=== PATIENT | female | born 1955 | race Caucasian/White ===

== ENCOUNTER → 2020-05-03 13:27 | Outpatient (CLI) | payer MEDICARE, OTHER, SELFPAY ==
--- NOTE | ~2020-05-03 | MM_ITS ---
EXAMINATION: MM screening alisha BI w sandie HISTORY: Screening mammogram, family history of breast cancer in her sister. TECHNIQUE: Craniocaudal and mediolateral oblique 3-D tomosynthesis images were obtained and synthetic 2-D images were generated. CAD analysis was submitted and interpreted. COMPARISON: 05/01/2019, 04/10/2018, 03/09/2017 BREAST PARENCHYMAL COMPOSITION: The breasts are almost entirely fatty. FINDINGS: There is no evidence of suspicious mass, calcification, or architectural distortion to sugg est malignancy in either breast. There has been no suspicious interval change. IMPRESSION: 1. No mammographic evidence of malignancy. 2. Recommend routine screening mammography in one year. BI-RADS Category 1: Negative Reviewed, dictated and finalized at location A. DENCE MANAGER
--- NOTE | ~2020-05-03 | DEXA_ITS ---
Bone Density Report Name: Bety Vasquez Age: 64 Sex: Female Ethnicity: White Date of : 1955 Indication: osteopenia; hysterectomy; Referring Provider: ERICK ALAN Study: Bone densitometry was performed. Exam Date: May 03, 2020 Accession number: [id number] Bone Density: Region BMD T-score Z-score Classification AP Spine (L1-L4) 0.941 -1.0 0.9 Normal Femoral Neck (Left) 0.825 -0.2 1.4 Normal Total Hip (Left) 0.984 0.3 1.7 Normal Femoral Neck (Right) 0.805 -0.4 1.2 Normal Total Hip (Right) 0.873 -0.6 0.8 Normal Total Hip Mean 0.929 -0.2 1.3 Normal World Health Organization criteria for BMD impression classify patients as: Normal (T-score at or above -1.0), Osteopenia (T-score between -1.0 and -2.5), or Osteoporosis (T-score at or below -2.5). 10-year Fracture Risk: FRAX not reported because: All T-scores for Spine Total, Hip Total, Femoral Neck at or above -1.0 Previous Exams: Region Exam Age BMD T-score BMD Change BMD Change Date g/cm2 vs Baseline vs Previous AP Spine(L1-L4) 05/03/2020 64 0.941 -1.0 -0.045* 0.038* 04/10/2018 62 0.903 -1.3 -0.083* -0.027* 03/04/2016 60 0.930 -1.1 -0.056* -0.037* 12/29/2011 56 0.967 -0.7 -0.019 0.015 11/16/2008 53 0.952 -0.9 -0.034* -0.034* 11/09/2006 51 0.986 -0.6 Total Hip(Left) 05/03/2020 64 0.984 0.3 -0.050* 0.000 04/10/2018 62 0.983 0.3 -0.050* 0.044* 03/04/2016 60 0.939 0.0 -0.095* -0.137* 12/29/2011 56 1.076 1.1 0.042* 0.069* 11/16/2008 53 1.007 0.5 -0.027 -0.027 11/09/2006 51 1.034 0.8 Total Hip(Right) 05/03/2020 64 0.873 -0.6 -0.099* -0.004 04/10/2018 62 0.877 -0.5 -0.095* -0.009 03/04/2016 60 0.887 -0.5 -0.086* -0.095* 12/29/2011 56 0.982 0.3 0.010 0.005 11/16/2008 53 0.977 0.3 0.004 0.004 11/09/2006 51 0.972 0.2 *Denotes significance at 95% confidence level, LSC for AP Spine = 0.022 g/cm2, LSC for Total Hip = 0.027 g/cm2 Clinical Information Provided by Patient: Has used the following medications: Vitamin D, Calcium Has the following medical conditions: Hysterectomy Patient maximum height was 62 Menopause Age: 28 No regular weight bearing exercise Does not regularly consume dairy products
== END ==
PROVIDERS: PCP Physician Assistant; Visit Provider Obstetrics & Gynecology Gynecology
DX: Z13.820 Encounter for screening for osteoporosis (principal); Z12.31 Encounter for screening mammogram for malignant neoplasm of breast; Z78.0 Asymptomatic menopausal state
CPT/HCPCS: 77063; 77067; 77080

== ENCOUNTER → 2020-07-06 11:29 | Outpatient (CLI) | payer MEDICARE, OTHER, SELFPAY ==
--- NOTE | ~2020-07-06 | XR_ITS ---
EXAMINATION: XR shoulder RT min 2V DATE: 07/06/2020 12:09 INDICATION: Right upper arm pain. TECHNIQUE: 4 views of right shoulder were obtained. COMPARISON: None. FINDINGS: Bone alignment is normal. No fracture. Glenohumeral joint is normal. There is moderate acro mioclavicular joint osteoarthritis. There are changes of heart valve replacement. IMPRESSION: 1. Moderate acromioclavicular joint osteoarthritis. Reviewed, dictated and finalized at location B. TOCK SPRAY UNIT ADJUSTER
--- NOTE | ~2020-07-06 | XR_ITS ---
EXAMINATION: XR cervical spine 4-5V EXAM DATE: 07/06/2020 12:09 INDICATION: M54.12 - Radiculopathy, cervical region cervical radiculopathy. 3 months right upper arm pain, tingling in hands. TECHNIQUE: Cervical spine frontal, lateral, lateral swimmers, and open-mouth odontoid projections. There is no prior study for comparison. FINDINGS: There is 2 mm anterolisthesis C4 on C5. The vertebral bodies are otherwise aligned. Modera te to severe disc disease C5-6 and C6-7. Mild to moderate disc disease C3-4 and L4-5. The odontoid pr ocess is intact. The lateral masses of C1 line up with C2. Prevertebral soft tissue and pre-dens spa ce are within normal limits. There is mild cervical thoracic levoscoliosis. Some sternotomy wires. Bu lky mid cervical facet joint arthropathy. Lower cervical predominant uncovertebral joint arthropathy causing some amount of neural foraminal stenosis. IMPRESSION: 1. Moderate to severe cervical spondylosis. Reviewed, dictated and finalized at location A. GER WOUND CARE
== END ==
PROVIDERS: PCP Physician Assistant; Visit Provider Physician Assistant
DX: M47.812 Spondylosis without myelopathy or radiculopathy, cervical region (principal); M19.011 Primary osteoarthritis, right shoulder
CPT/HCPCS: 72050; 73030

== ENCOUNTER → 2020-07-09 10:40 | Outpatient (CLI) | payer MEDICARE, OTHER, SELFPAY ==
--- NOTE | ~2020-07-09 | MR_ITS ---
EXAMINATION: MR cervical spine wo con DATE: 07/09/2020 11:53 INDICATION: Cervical spondylosis without myelopathy or radiculopathy. TECHNIQUE: Magnetic resonance imaging (MRI) of the cervical spine was performed without intravenous c ontrast. Sequences included sagittal T2-weighted FSE, sagittal STIR FSE, sagittal T1-weighted FSE, ax ial MERGE, and axial T2-weighted FSE. COMPARISON: Cervical spine radiographs 07/06/2020 FINDINGS: There is 2 mm anterolisthesis of C4 on C5. There is 16 degrees levoscoliosis of cervicothor acic spine. Vertebral body heights are normal. There is mildly decreased disc height at C3-C4 and C4- C5, moderately decreased disc height at C5-C6, and severely decreased disc height at C6-C7. The spina l cord signal intensity is normal. The following disc levels are specifically discussed: C2-C3: The disc does not extend beyond the endplate margin. There is no uncovertebral joint osteoarth ritis. There is mild right facet joint osteoarthritis. There is ankylosis of left facet joint with mo derate hypertrophy. There is no neural foraminal stenosis. There is no central canal stenosis. C3-C4: The disc does not extend beyond the endplate margin. There is mild left uncovertebral joint hy pertrophy. There is mild right facet joint osteoarthritis. There is ankylosis of left facet joint wit h moderate hypertrophy. There is moderate left neural foraminal stenosis. There is no central canal s tenosis. C4-C5: The disc is bulging. There is mild bilateral uncovertebral joint osteoarthritis. There is luz re bilateral facet joint osteoarthritis. There is mild bilateral neural foraminal stenosis. There is mild central canal stenosis. C5-C6: The disc is bulging. There is moderate right and severe left uncovertebral joint osteoarthriti s. There is no facet joint osteoarthritis. There is mild left neural foraminal stenosis. There is mil d central canal stenosis. C6-C7: The disc is bulging. There is moderate right and severe left uncovertebral joint osteoarthriti s. There is mild bilateral facet joint osteoarthritis. There is mild bilateral neural foraminal steno sis. There is mild central canal stenosis. C7-T1: The disc does not extend beyond the endplate margin. There is no uncovertebral joint osteoarth ritis. There is mild bilateral facet joint osteoarthritis. There is no neural foraminal stenosis. The re is no central canal stenosis. IMPRESSION: 1. Severe cervical spondylosis. 2. Cervicothoracic levoscoliosis. Reviewed, dictated and finalized at location B. WARE TEST TECHNICIAN
[2020-07-09 11:21] LABS: Estimated Glomerular Filt Rate 32
== END ==
PROVIDERS: PCP Physician Assistant; Visit Provider Physician Assistant
DX: M47.812 Spondylosis without myelopathy or radiculopathy, cervical region (principal); M41.83 Other forms of scoliosis, cervicothoracic region
CPT/HCPCS: 72141

== ENCOUNTER 2020-07-23 11:53 | Inpatient (IN) | payer MEDICARE, OTHER, SELFPAY ==
[2020-07-23] VITALS (17 sets, daily range): BP systolic 134–171; BP diastolic 42–97; PULSE 73–86; RESP 10–23; TEMP 36.4–37.1; O2SAT 82–100
--- NOTE | ~2020-07-23 | XR_ITS ---
XR surgery orthopedic 07/24/2020 13:05 Indication: Intraoperative fixation of bimalleolar fracture Procedure: 5 fluoroscopic images of the right ankle. 79 seconds of fluoroscopy. Comparison: 07/23/2020 Findings: Status post internal fixation of bimalleolar fracture with fibular sideplate and multiple s crews. There is a single lag screw in the medial malleolus. There is anatomic alignment post reductio n. Impression: 1: Anatomic alignment of the right ankle post intraoperative reduction of bimalleolar fracture. Reviewed, dictated and finalized at location A. [employer]OR [employer]Y CLEANING Impression: 1: Anatomic alignment of the right ankle post intraoperative reduction of sina leolar fracture.
--- NOTE | ~2020-07-23 | XR_ITS ---
EXAMINATION: XR ankle RT 2V EXAM DATE: 07/23/2020 14:02 INDICATION: Postreduction. TECHNIQUE: Frontal and lateral projections of the right ankle. Comparison is made to prior examinati on from earlier same date. FINDINGS: There is been reduction in the posterior talar dislocation. There is still mild lateral tello bluxation with respect to tibial plafond. Acute posteromedial tibial/medial malleolar fractures and t he lateral fibular fracture have also been reduced. IMPRESSION: Reduced right ankle fractures. Disrupted mortise. Reviewed, dictated and finalized at location B. HALMIC DISPENSER
--- NOTE | ~2020-07-23 | XR_ITS ---
EXAMINATION: XR ankle RT min 3V EXAM DATE: 07/23/2020 12:12 INDICATION: Right ankle fractures. TECHNIQUE: Frontal, lateral, oblique projections of the right ankle. There is no prior study for co mparison. FINDINGS: There is complete posterior dislocation of the right talus and lateral subluxation with re spect to tibial plafond . A sizable fragment of the posteromedial tibial plafond, including the media l malleolus, has dislocated with the talus. There is acute oblique fracture through the distal fibula r metaphysis into the superolateral aspect of the mortise. These are posttraumatic findings and appea r to be closed fractures but clinical correlation required. There is soft tissue swelling. IMPRESSION: Right ankle fracture dislocation as above. Reviewed, dictated and finalized at location B. REGISTER REPAIRER
[2020-07-23] MEDS: HYDROmorphone HCL INJ (*CRX) 1 MG/ML SYR IV PUSH (12:27)
--- NOTE | 2020-07-23 12:47 | ED.LOWEXIN ---
HPI - Extremity Injury (Lower) General Chief Complaint: Extremity Injury, Lower Stated Complaint: right ankle deformity Time Seen by Provider: 07/23/20 12:17 Source: patient Mode of arrival: EMS Limitations: no limitations History of Present Illness HPI Narrative: Patient is a 64-year-old female complaining of right ankle pain after she slipped on ice, fell, landing on her right ankle prior to arrival. Patient denies any head, neck, back, chest or any other extremity pain/injury. Related Data Home Medications Medication Instructions Recorded Confirmed blood sugar diagnostic #10 each 05/08/19 04/30/20 pen needle, diabetic 32 gauge x #10 each 05/08/19 07/06/20 aspirin 81 mg tablet,delayed 81 mg PO DAILY 07/21/19 07/06/20 release clopidogrel 75 mg tablet 75 mg PO DAILY 07/21/19 07/06/20 ezetimibe 10 mg tablet 10 mg PO DAILY 07/21/19 07/06/20 isosorbide mononitrate 60 mg 60 mg PO DAILY 07/21/19 07/06/20 tablet,extended release 24 hr lisinopril 20 mg tablet 20 mg PO DAILY 07/21/19 07/06/20 pravastatin 40 mg tablet 40 mg PO QPM tablet 11/25/19 07/06/20 calcium carbonate 600 mg calcium 1,200 mg PO DAILY tablet 03/30/20 07/06/20 (1,500 mg) tablet chlorthalidone 25 mg tablet 25 mg PO DAILY 04/26/20 07/06/20 cholecalciferol (vitamin D3) 25 5,000 unit PO DAILY tablet 04/26/20 07/06/20 mcg (1,000 unit) tablet metoprolol succinate 100 mg 100 mg PO DAILY 04/26/20 07/06/20 tablet,extended release 24 hr Allergies Allergy/AdvReac Type Severity Reaction Status Date / Time No Known Allergies Allergy Unverified 07/23/20 11:59 Review of Systems Review of Systems: All systems reviewed & are unremarkable except as noted in HPI and below Constitutional: Constitutional: Denies body ache(s), Denies chills, Denies excessive sweating, Denies fatigue, Denies fever(s), Denies headache(s), Denies lethargy, Denies malaise, Denies weakness and Denies weight loss Eyes: Eyes: Denies blurry vision, Denies change in vision and Denies loss of vision ENT: Denies dizziness, Denies ear discharge, Denies headache(s), Denies lip swelling, Denies epistaxis, Denies nasal congestion, Denies neck pain, Denies throat swelling and Denies tongue swelling Cardiovascular: Cardiovascular: Denies chest pain, Denies chest pain at rest, Denies chest pain with activity, Denies diaphoresis, Denies rapid heart rate, Denies edema, Denies irregular heart rhythm, Denies lightheadedness, Denies palpitations, Denies dyspnea and Denies dyspnea on exertion Respiratory: Respiratory: Denies chest congestion, Denies cough, Denies hemoptysis, Denies dyspnea and Denies dyspnea on exertion Gastrointestinal: Gastrointestinal: Denies abdominal pain, Denies melena, Denies hematochezia, Denies diarrhea, Denies nausea, Denies vomiting and Denies hematemesis Musculoskeletal: Musculoskeletal: Denies neck pain and Denies numbness Neurologic: Denies Abnormal speech present, Denies abnormal gait, Denies confusion, Denies dizziness, Denies headache(s), Denies focal weakness, Denies loss of vision, Denies numbness, Denies Other visual disturbances, Denies Sensory deficit (Neuro) and Denies weakness Psychiatric: Psychiatric: Denies confusion, Denies depression, Denies auditory hallucinations, Denies homicidal ideation and Denies suicidal ideation Endocrine: Endocrine: Denies cold intolerance, Denies excessive sweating, Denies fatigue, Denies heat intolerance and Denies palpitations Hematologic/Lymphatic: Hematologic/Lymphatic: Denies easy bleeding and Denies easy bruising Allergic/Immunologic: Allergic/Immunologic: Denies lip swelling, Denies throat swelling and Denies tongue swelling [facility] Past Medical History Medical History Arthritis Cholecystectomy planned Heart disease Hypertension Surgical History Surgical History H/O cataract extraction H/O heart bypass surgery
[2020-07-23 13:05] LABS: Basophils Percent Auto 0.3 % (0.2-1.2); Eosinophils Percent Auto 0.2 % (0-4.4); Hematocrit 33.3 % (37.0-47.0); Hemoglobin 10.6 g/dL (12.0-15.0); Immature Granulocyte Percent A 0.8 % (0-0.5); Lymphocytes Absolute Auto 1.33 K/mm3 (0.9-3.2); Lymphocytes Percent Auto 11.3 % (18.3-44.2); Mean Corpuscular HGB Conc 31.8 g/dl (32-36); Mean Corpuscular Hemoglobin 25.4 pg (26-34); Mean Corpuscular Volume 79.7 fl (80-100); Mean Platelet Volume 12.1 fl (7.4-10.4); Monocytes Absolute Auto 0.4 K/mm3 (0.1-0.6); Monocytes Percent Auto 3.4 % (2.6-8.5); Neutrophils Absolute Auto 9.9 K/mm3 (1.3-6.7); Platelet Count Result 263 k/mm3 (150-375); Red Blood Count 4.18 M/mm3 (4.2-5.4); Red Cell Distribution Width 14.6 % (11.5-14.5); White Blood Count 11.8 K/mm3 (4.5-10.0)
[2020-07-23 13:12] LABS: Prothrombin Time 13.6 Seconds (11.1-14.7)
[2020-07-23 13:13] LABS: Partial Thromboplastin Time 24.7 SECONDS (22.3-36.8)
[2020-07-23 13:19] LABS: Anion Gap 7 mmol/L (8-16); Blood Urea Nitrogen 30 mg/dL (7-17); Calcium 9.6 mg/dL (8.4-10.2); Carbon Dioxide 30 mmol/L (22-30); Chloride 99 mmol/L (98-107); Estimated CRCL calculation 31 ml/min; Estimated Glomerular Filt Rate 32; Glucose 247 mg/dL (65-105); Potassium 4.9 mmol/L (3.4-5.0); Sodium 136 mmol/L (137-145)
--- NOTE | 2020-07-23 13:40 | PC.NURSE ---
1340- time out performed. pt A&Ox4, right ankle reduction. all safety precautions in place.
[2020-07-23] MEDS: PROPOFOL IV EMULSION 200 MG/20 ML VIAL 60 MG IV PUSH (13:45)
--- NOTE | 2020-07-23 13:45 | PC.NURSE ---
1345: Dr. Rowell at bedside, 20 mgs propofol give IV.
--- NOTE | 2020-07-23 13:50 | PC.NURSE ---
1348: 10 mg propofol given, pt arousable to calling
--- NOTE | 2020-07-23 14:00 | PC.NURSE ---
1400: Pt fully awake and answering all questions appropriately
[2020-07-23] MEDS: SODIUM CHLORIDE 0.9% IV 1,000 ML 999 ML (14:02)
--- NOTE | 2020-07-23 14:05 | PC.NURSE ---
1350: Dr. cerda completed reduction. splinting taking place. Pt arousable to calling.
--- NOTE | 2020-07-23 14:53 | PM.CNOR ---
Assessment and Plan Additional Plan Patient has displaced right trimalleolar ankle fracture. This will need to be fixed surgically. Patient has a significant cardiac history. Her automatic seamer is Dr. Hernández here at the hospital. She states she saw him 2 weeks ago. She does have history of diabetes in her last hemoglobin A1c was 6.9. She also has chronic renal dysfunction as well. Given the severity of the fracture and also had a dislocation initially these are best treated very acutely, otherwise they have a tendency to swelling dramatically and surgical need to be delayed for at least a week or 2. We will plan to have the patient admitted to the hospitalist for evaluation. We will consult Dr. Hernández for cardiac clearance. The plan will be to proceed to the operating room on 07/24/[address] is cleared. Dr. Dave will see the patient prior to surgery to discuss the surgical procedure as well as the risks and complications. History of Present Illness HPI Consult date: 07/23/20 Chief complaint: right ankle deformity PMFSH Past Medical History Medical History Arthritis Cholecystectomy planned Heart disease Hypertension Surgical History Surgical History H/O cataract extraction H/O heart bypass surgery H/O: hysterectomy Hx of cholecystectomy Family History Family History Other Carcinoma of colon Diabetes mellitus Family history of cardiovascular disease Family history of chronic obstructive pulmonary disease Family history of glaucoma Family history of lung cancer Hypertension Social History Social History Smoking status: Never smoker Second hand tobacco smoke exposure: No Alcohol intake: never Meds Home Medications and Allergies Home Medications Medication Instructions Recorded Confirmed Type blood sugar diagnostic #10 each 05/08/19 04/30/20 History pen needle, diabetic 32 gauge x #10 each 05/08/19 07/06/20 History aspirin 81 mg tablet,delayed 81 mg PO DAILY 07/21/19 07/06/20 History release clopidogrel 75 mg tablet 75 mg PO DAILY 07/21/19 07/06/20 History ezetimibe 10 mg tablet 10 mg PO DAILY 07/21/19 07/06/20 History isosorbide mononitrate 60 mg 60 mg PO DAILY 07/21/19 07/06/20 History tablet,extended release 24 hr lisinopril 20 mg tablet 20 mg PO DAILY 07/21/19 07/06/20 History pravastatin 40 mg tablet 40 mg PO QPM tablet 11/25/19 07/06/20 History calcium carbonate 600 mg calcium 1,200 mg PO DAILY tablet 03/30/20 07/06/20 History (1,500 mg) tablet chlorthalidone 25 mg tablet 25 mg PO DAILY 04/26/20 07/06/20 History cholecalciferol (vitamin D3) 25 5,000 unit PO DAILY tablet 04/26/20 07/06/20 History mcg (1,000 unit) tablet metoprolol succinate 100 mg 100 mg PO DAILY 04/26/20 07/06/20 History tablet,extended release 24 hr Tresiba FlexTouch U-200 200 55 unit SUB-Q QPM 90 Days #27 ml NS 05/19/20 07/06/20 Rx unit/mL (3 mL) subcutaneous pen Allergies Allergy/AdvReac Type Severity Reaction Status Date / Time No Known Allergies Allergy Unverified 07/23/20 11:59 Vital Signs Vital Signs - 24 hr 07/23/20 11:52 07/23/20 13:37 07/23/20 13:40 Temperature 36.4 C L 37.1 C Pulse Rate 86 74 Pulse Rate [Monitor] 76 Respiratory Rate 18 17 10 L Blood Pressure 163/96 H 149/97 H Blood Pressure [Right Arm] 149/97 H Pulse Oximetry 99 100 99 07/23/20 13:45 07/23/20 13:50 07/23/20 13:55 Temperature Pulse Rate Pulse Rate [Monitor] 78 80 76 Respiratory Rate 15 14 16 Blood Pressure Blood Pressure [Right Arm] 171/92 H 160/84 H 157/77 H Pulse Oximetry 98 96 99 07/23/20 14:10 07/23/20 14:25 Temperature Pulse Rate Pulse Rate [Monitor] 76 78 Respiratory Rate 15 14 Blood Pressure Blood Pressure [Right Arm] 148/75 H 13
--- NOTE | 2020-07-23 15:30 | PM.IMHP ---
H&P: HPI History of Present Illness Date/Time: 07/23/20 15:30 Chief Complaint: Right ankle pain and deformity after fall. Narrative: This is a very pleasant 64-year-old female with coronary artery disease status post CABG, valvular heart disease status post mitral and aortic valve replacement, type 2 diabetes mellitus, hypertension, hyperlipidemia, and chronic kidney disease who presented to the emergency department earlier today via EMS from home with reports of right ankle pain and deformity after a fall. She was in her usual state of health when she woke this morning and not long prior to arrival she slipped on a door mat that was a bit icy, twisting her ankle and falling down to her buttocks. She had immediate pain in her right ankle and recognized a deformity. She was able to scoot into her home and call 911 from her cell phone which was sitting on the table just inside the door. She was found to have a right ankle trimalleolar fracture, status post reduction, and she is being admitted in this setting as Dr. Dave intends on fixing that tomorrow. At the time my evaluation she reports a pretty constant aching and pressure-like pain, although it feels much better after reduction. She denies paresthesias, skin color, and temperature changes of the right foot. She sustained no other injuries in the fall and denies head trauma and loss of consciousness. Review of Systems Review of Systems: Narrative: Twelve systems were reviewed with pertinent positives and negatives as per HPI. No fever, chills, or sweats. No recent cold or flu symptoms. She denies exposure to those positive for COVID-19. She has not had cough or shortness of breath. No exertional chest pain or shortness of breath. She is a patient of Dr. Hernández and in fact saw him in the office for routine appointment sometime in June 2020. No syncope or near syncope. No orthopnea, PND, or lower extremity edema. She denies nausea, vomiting, diarrhea. Her diabetes is pretty well controlled with a recent hemoglobin A1c around 6.9%. She received a cortisone injection in her right shoulder earlier this week and her glucose has been running a bit higher since that time. She was recently taken off of metformin due to her creatinine level, which is reportedly stable. No blurry vision, polydipsia, or polyuria. Except as documented, all other systems were reviewed and are negative. [facility] Past Medical History Medical History (Updated 07/23/20 @ 21:55 by Sherita Aden PA-C) Anxiety Arthritis Chronic anemia Chronic kidney disease, stage 3 Coronary artery disease Status post three-vessel CABG in 2002. She is a patient of Dr. Vadim Hernández. Essential hypertension Gastroesophageal reflux disease Osteopenia Type 2 diabetes mellitus Recent hemoglobin A1c of 6.9%. Vitamin D deficiency Surgical History Surgical History (Updated 07/23/20 @ 21:47 by Sherita Aden PA-C) History of aortic valve replacement (~07/2018) Bioprosthetic tissue valve replacement done at [facility]. History of bilateral cataract extraction History of bladder suspension procedure History of bunionectomy History of section History of cholecystectomy History of coronary artery bypass graft x 3 (~04/2003) Performed at [facility]. History of hysterectomy History of mitral valve replacement (~07/2018) Bioprosthetic tissue valve replacement done at [facility]. Status post mitral valve annuloplasty (~04/2003) Family History Family History (Updated 07/23/20 @ 21:48 by Sherita Aden PA-C) Father Carcinoma of colon Heart disease Mother Family history of lung cancer Sibling Heart disease Other Diabetes mellitus Family history of cardiovascular disease Family history of chronic obstructive pulmonary disease Family history of glaucoma Hypertension Social History Social History (Updated 07/23/20 @ 21:49 by Sherita Aden PA-C) Social His
--- NOTE | 2020-07-23 16:50 | ADMGEN ---
This patient, Bety Vasquez, was admitted to 2 Medical Room 241-01. Patient/family oriented to hospital policies and general routines including ID bracelet, bed and alarms, visiting hours, pain management, procedures, bathroom and other care routines, personal items, smoking policy, room service/diet, and visiting hours. Information on how to activate the Rapid Response Team has been discussed. Patient/Family are encouraged to report perceived risks to care and to ask questions if they do not understand what they are told or what they should do.
[2020-07-23] MEDS: LACTATED RINGERS 1,000 ML 90 ML IV CONT (17:21)
[2020-07-23] MEDS: oxyCODONE HCL (*CRX) 2.5 MG TAB IR PO (18:05)
[2020-07-23 18:43] LABS: Glucose Point of Care 167 (65-105)
[2020-07-23] MEDS: HYDROmorphone HCL INJ (*CRX) 1 MG/ML SYR 0.5 MG IV PUSH (20:27)
[2020-07-23 21:18] LABS: Glucose Point of Care 290 (65-105)
[2020-07-23] MEDS: PRAVASTATIN SODIUM 20 MG TABLET 40 MG PO (22:45)
[2020-07-23] MEDS: HYDROcodone/acetaminophen (*CRX) 5-325 MG TABLET 1 TAB PO (22:47)
[2020-07-23] MEDS: INSULIN GLARGINE (*BKC) 100 UNITS/ML 30 UNITS SUB-Q (23:09)
[2020-07-24] VITALS (14 sets, daily range): BP systolic 115–149; BP diastolic 48–79; PULSE 77–85; RESP 10–16; TEMP 36.4–37.3; O2SAT 94–100
--- NOTE | 2020-07-24 | ECHO_ITS ---
Patient Info Name: Bety Vasquez Age: 64 years : 1955 Gender: Female Ht: 61 in Wt: 180 lbs BSA: 1.91 m2 HR: 72 bpm BP: 149 / 79 mmHg Technical Quality: Fair Exam Date: 07/24/2020 10:11 AM Exam Location: [facility] Patient Status: Inpatient Admit Date: 07/23/2020 Staff Ordering Physician: Petros Anton MD Network Security Consultant: Tiffanie Copeland RDCS Attending Provider: Cora Salmeron PA-C Exam Type: CA echo dop color flow w con Study Info Complete two-dimensional, color flow and Doppler transthoracic echocardiogram is performed with contrast to opacify the left ventricle and to improve the deliniation of the left ventricle endocardial borders. Contrast/Agitated Saline Contrast/Ag. Saline: Definity Amount: 4.00 ml Summary 1. Left ventricular chamber dimension is normal. 2. Left ventricular systolic function is normal, estimated at 60-65%. 3. Right ventricular chamber dimension is normal. 4. Right ventricular systolic function is normal. 5. The bioprosthetic aortic valve is structurally and functionally normal by two-dimensional, color flow Doppler and Doppler interrogation. Mean gradient 17 mmHg. 6. The bioprosthetic mitral valve is structurally and functionally normal by two-dimensional, color flow Doppler and Doppler interrogation. mean gradient 3.7 mmHg at HR of 73 bpm. 7. No pulmonary hypertension, estimated pulmonary arterial systolic pressure is 25 mmHg. Left Ventricle Left ventricular chamber dimension is normal. Left ventricular systolic function is normal, estimated at 60-65%. There is no increased left ventricular wall thickness. Left ventricular septal wall motion is normal. The left ventricular diastolic function is normal. Right Ventricle Right ventricular chamber dimension is normal. Right ventricular systolic function is normal. Left Atria Left atrial chamber dimension is normal. Right Atria Right atrial chamber dimension is normal. Aortic Valve The bioprosthetic aortic valve is structurally and functionally normal by two-dimensional, color flow Doppler and Doppler interrogation. Mean gradient 17 mmHg. There is no aortic valve stenosis. There is no aortic valve regurgitation. Pulmonic Valve The pulmonic valve is normal. There is no pulmonic valve stenosis. There is no pulmonic regurgitation. Mitral Valve The bioprosthetic mitral valve is structurally and functionally normal by two-dimensional, color flow Doppler and Doppler interrogation. mean gradient 3.7 mmHg at HR of 73 bpm. There is no mitral valve stenosis. There is no mitral valve regurgitation. Tricuspid Valve The tricuspid valve leaflets are normal. There is mild tricuspid valve stenosis. There is no tricuspid valve regurgitation. No pulmonary hypertension, estimated pulmonary arterial systolic pressure is 25 mmHg. Pericardium/Pleural The pericardium appears normal. There is no pericardial effusion. Inferior Vena Cava Normal inferior vena cava with >50% collapse upon inspiration consistent with normal right atrial pressure, 3 mmHg. Aorta The aortic root size at the sinus of Valsalva is normal. The prox ascending aorta size is normal. Left Ventricular Outflow Tract Name Value Normal LVOT 2D
[2020-07-24] MEDS: HYDROmorphone HCL INJ (*CRX) 1 MG/ML SYR 0.5 MG IV PUSH (00:41)
[2020-07-24 05:14] LABS: Glucose Point of Care 185 (65-105)
[2020-07-24 06:28] LABS: Hematocrit 29.7 % (37.0-47.0); Hemoglobin 9.3 g/dL (12.0-15.0); Mean Corpuscular HGB Conc 31.3 g/dl (32-36); Mean Corpuscular Hemoglobin 25.2 pg (26-34); Mean Corpuscular Volume 80.5 fl (80-100); Mean Platelet Volume 12.2 fl (7.4-10.4); Platelet Count Result 225 k/mm3 (150-375); Red Blood Count 3.69 M/mm3 (4.2-5.4); Red Cell Distribution Width 14.7 % (11.5-14.5); White Blood Count 10.6 K/mm3 (4.5-10.0)
[2020-07-24 06:45] LABS: Alanine Aminotransferase 11 U/L (4-35); Albumin Level 3.8 g/dL (3.5-5.1); Alkaline Phosphatase 79 U/L (38-126); Anion Gap 6 mmol/L (8-16); Aspartate Amino Transferase 23 U/L (14-36); Bilirubin,Total 0.3 mg/dL (0.2-1.3); Blood Urea Nitrogen 26 mg/dL (7-17); Calcium 9.1 mg/dL (8.4-10.2); Carbon Dioxide 28 mmol/L (22-30); Chloride 103 mmol/L (98-107); Estimated CRCL calculation 35 ml/min; Estimated Glomerular Filt Rate 38; Glucose 176 mg/dL (65-105); Magnesium 1.6 mg/dL (1.6-2.3); Potassium 4.5 mmol/L (3.4-5.0); Sodium 137 mmol/L (137-145)
[2020-07-24 07:42] LABS: Glucose Point of Care 159 (65-105)
--- NOTE | 2020-07-24 08:00 | PC.NURSE ---
I spoke with Angelica from Anesthesiology about the patient's medications. She looked through the patient's medications and requested that we administer the 0900 medications. I clarified this with Dr. Anton as well and he stated that the patient may receive her morning medications with a sip of water.
[2020-07-24 08:09] LABS: Hemoglobin A1C 8.2 % (<5.7)
--- NOTE | 2020-07-24 08:51 | WPDANESEPP ---
Anes - Eval Pre Procedure Date/Time: 07/24/20 08:51 Pre Op Diagnosis: FRACTURE/DISLOCATION RIGHT ANKLE/DM/CAD/CKD Patient Data Age: 64 Gender: F Height: 1.55 m Weight: 84.1 kg Last Vital Signs Temp 36.9 C 07/24/20 04:48 Pulse 85 07/24/20 04:48 Resp 16 07/24/20 04:48 BP 149/79 H 07/24/20 04:48 Pulse Ox 100 07/24/20 04:48 Allergies Allergy/AdvReac Type Severity Reaction Status Date / Time No Known Allergies Allergy Verified 07/23/20 18:11 Home Medications Medication Instructions Recorded Confirmed Type blood sugar diagnostic #10 each 05/08/19 07/23/20 History pen needle, diabetic 32 gauge x #10 each 05/08/19 07/23/20 History aspirin 81 mg tablet,delayed 81 mg PO DAILY 07/21/19 07/23/20 History release clopidogrel 75 mg tablet 75 mg PO DAILY 07/21/19 07/23/20 History ezetimibe 10 mg tablet 10 mg PO DAILY 07/21/19 07/23/20 History isosorbide mononitrate 60 mg 60 mg PO DAILY 07/21/19 07/23/20 History tablet,extended release 24 hr lisinopril 20 mg tablet 20 mg PO DAILY 07/21/19 07/23/20 History pravastatin 40 mg tablet 40 mg PO QPM tablet 11/25/19 07/23/20 History calcium carbonate 600 mg calcium 600 mg PO DAILY tablet 03/30/20 07/23/20 History (1,500 mg) tablet chlorthalidone 25 mg tablet 25 mg PO DAILY 04/26/20 07/23/20 History cholecalciferol (vitamin D3) 25 5,000 unit PO DAILY tablet 04/26/20 07/23/20 History mcg (1,000 unit) tablet metoprolol succinate 100 mg 100 mg PO DAILY 04/26/20 07/23/20 History tablet,extended release 24 hr Tresiba FlexTouch U-200 200 55 unit SUB-Q QPM 90 Days #27 ml NS 05/19/20 07/23/20 Rx unit/mL (3 mL) subcutaneous pen pantoprazole 40 mg PO QAM 07/23/20 07/23/20 History semaglutide [Ozempic] See Rx Instructions .ROUTE .COMPLEX 07/23/20 07/23/20 History Laboratory Tests 07/23/20 07/23/20 07/23/20 12:59 12:59 12:59 WBC 11.8 K/mm3 H K/mm3 (4.5-10.0) RBC 4.18 M/mm3 L M/mm3 (4.2-5.4) Hgb 10.6 g/dL L g/dL (12.0-15.0) Hct 33.3 % L % (37.0-47.0) MCV 79.7 fl L fl (80-100) MCH 25.4 pg L pg (26-34) MCHC 31.8 g/dl L g/dl (32-36) RDW 14.6 % H % (11.5-14.5) Plt Count 263 k/mm3 k/mm3 (150-375) MPV 12.1 fl H fl (7.4-10.4) Immature Gran % (Auto) 0.8 % H % (0-0.5) Neut % (Auto) 84.0 % H % (45.5-73.1) Lymph % (Auto) 11.3 % L % (18.3-44.2) [place] % (Auto) 3.4 % % (2.6-8.5) Eos % (Auto) 0.2 % % (0-4.4) Baso % (Auto) 0.3 % % (0.2-1.2) Lymph # (Auto) 1.33 K/mm3 K/mm3 (0.9-3.2) [place] # (Auto) 0.4 K/mm3 K/mm3 (0.1-0.6) Eos # (Auto) 0.0 K/mm3 K/mm3 (0-0.3) Baso # (Auto) 0.0 K/mm3 K/mm3 (0.0-0.1) Abs Immat Gran (auto) 0.10 K/mm3 H K/mm3 (0.00-0.031) Absolute Neuts (auto) 9.9 K/mm3 H K/mm3 (1.3-6.7) Absolute Nucleated RBC 0.0 K/mm3 K/mm3 (0.0-0.012) Nucleated RBC % 0.0 % % (0.0-0.2) PT 13.6 Seconds Seconds (11.1-14.7) INR 1.0 APTT 24.7 SECONDS SECONDS (22.3-36.8) Sodium 136 mmol/L L mmol/L (137-145) Potassium 4.9 mmol/L mmol/L (3.4-5.0) Chloride 99 mmol/L mmol/L (98-107) Carbon Dioxide 30 mmol/L mmol/L (22-30) Anion Gap 7 mmol/L L mmol/L (8-16) BUN 30 mg/dL H mg/dL (7-17) Creatinine 1.60 mg/dL H mg/dL (0.7-1.0) Estim Creat Clear Calc 31 ml/min ml/min Estimated GFR 32 L (59 - ) Glucose 247 mg/dL H mg/dL (65-105) POC Capillary Glucose Hemoglobin A1c Calcium 9.6 mg/dL mg/dL (8.4-10.2) Magnesium Total Bilirubin AST ALT Alkaline Phosphatase Total Protein Albumin 07/23/20 07/23/20 07/24/20 18:31 20:32 04
[2020-07-24] MEDS: METOPROLOL SUCCINATE EXT REL 100 MG TABCR PO (09:01)
[2020-07-24] MEDS: EZETIMIBE 10 MG TABLET PO (09:01)
[2020-07-24] MEDS: CHLORTHALIDONE 25 MG TABLET PO (09:01)
[2020-07-24] MEDS: lisinopriL 20 MG TABLET PO (09:02)
[2020-07-24] MEDS: PANTOPRAZOLE 40 MG TABLET PO (09:02)
[2020-07-24] MEDS: ISOSORBIDE MONONITRATE 60 MG TAB.ER.24H PO (09:02)
--- NOTE | 2020-07-24 09:06 | PM.CNCAR ---
Assessment and Plan Assessment and plan (1) Preoperative cardiovascular examination: Code(s): Z01.810 - Encounter for preprocedural cardiovascular examination Status: Acute Assessment and Plan: Patient admitted with acute rt ankle fracture that needs urgent surgery, She had Hx of bioprosthetic AV and MV replacement in [facility] and s/p PCI to RCA and LCX in 2018. No cardiac symptoms and MET at or more than 4. Plan EKG, Telemetry, resume cardiac medication inclusing ASA, statin, B-pham, imdur and ACEI, hold plavix and will resume later date after surgery, TTE, can proceed with surgery and cardiology will cont to follow. Patient understands that there is risk associated with surgery in her case and no current intervention could decrease the risk. Anesthesia team will use appropriate agents to minimize major shifts in fluids or hemodynamics. History of Present Illness History of Present Illness Consult date/time: 07/24/20 09:06 Consult reason: pre-op evaluation Reason For Visit: FRACTURE/DISLOCATION RIGHT ANKLE/DM/CAD/CKD Narrative: Patient presented after fall yesterday on ice and had acute pain and deformity in rt ankle, she was found to have ankle fracture and admitted for ankles surgery, She was lying in bed today complaining of mild pain, but pain was sever overnight and needed pain medications. She has Hx of Valve heart disease and bioprosthetic AV and MV replacement in [facility] 2018 and then PCI to LCX and RCA. She had been asymptomatic since then. She had been compliant with medications. She has been active live independent and walks upstairs and downstairs with no symptoms. Review of Systems Review of Systems: All systems reviewed & are unremarkable except as noted in HPI and below PMFSH Past Medical History Medical History Anxiety Arthritis Chronic anemia Chronic kidney disease, stage 3 Coronary artery disease Status post three-vessel CABG in 2002. She is a patient of Dr. Vadim Hernández. Essential hypertension Gastroesophageal reflux disease Osteopenia Type 2 diabetes mellitus Recent hemoglobin A1c of 6.9%. Vitamin D deficiency Surgical History Surgical History History of aortic valve replacement (~07/2018) Bioprosthetic tissue valve replacement done at [facility]. History of bilateral cataract extraction History of bladder suspension procedure History of bunionectomy History of section History of cholecystectomy History of coronary artery bypass graft x 3 (~04/2003) Performed at [facility] in [place]. History of hysterectomy History of mitral valve replacement (~07/2018) Bioprosthetic tissue valve replacement done at [facility]. Status post mitral valve annuloplasty (~04/2003) Family History Family History Father Carcinoma of colon Heart disease Mother Family history of lung cancer Sibling Heart disease Other Diabetes mellitus Family history of cardiovascular disease Family history of chronic obstructive pulmonary disease Family history of glaucoma Hypertension Social History Social History Social History: Surrogate decision maker: Vadim Vasquez, barrett. Code status: Full code. Smoking status: Never smoker Second hand tobacco smoke exposure: No Alcohol intake: never Substance use: never Additional living arrangements comments: The patient is and lives in her own home in [place]. Two adult sons. Additional occupation/education comments: Retired. Previously worked for an insurance agency. Gender identity (if verbalized by the patient): Female Spiritual care concerns: No Meds Home Medications and Allergies Home Medications Medication Instructions Recorded Confirmed Typ
--- NOTE | 2020-07-24 09:21 | ECG_ITS ---
Measurements Intervals [place] Rate: 75 P: 49 RI: 148 QRS: 19 QRSD: 94 T: 44 QT: 390 QTc: 438 Interpretive Statements SINUS RHYTHM BASELINE ARTIFACT- I, II, III, AVR, AVL, AVF NORMAL ECG Electronically Signed On 07-24-2020 11:05:25 SOFTWARE RELEASE MANAGER by Jose Antonio Corea D.O.
[2020-07-24] MEDS: ASPIRIN 81 MG ENTERIC TABLET PO (09:46)
--- NOTE | 2020-07-24 10:20 | WPDHPUPDATE1 ---
History and Physical Update Update Date/Time: 07/24/20 10:20 History and Physical has been reviewed, including an updated exam of the patient. There are NO changes in the patient's condition. Risks, benefits, and alternatives have been discussed and questions answered. Patient agrees to proceed with procedure. Cardiology has cleared patient to proceed. Echo cardiogram ordered to establish baseline. Increased risk of medical complications due to CAD and kidney disease.
--- NOTE | 2020-07-24 10:42 | WPDANESEFPP ---
Anes - Eval Final PreProcedure Day of Procedure 07/24/20 10:42 Patient weight: obese Heart: regular rate and rhythm Lungs: decreased breath sounds Airway: Mallampati scale class II Neurological: alert and oriented Last oral intake: >/= 8 hours ASA classification: III Emergent: no Anesthetic plan: proceed Anesthesia type and monitoring: general LMA and standard monitoring Informed Consent: The patient's anesthetic plan and its attendant risks and benefits were discussed with the patient/family/POA. Questions were solicited and answers provided to the satisfaction of the patient/family/POA.
--- NOTE | 2020-07-24 11:05 | PC.NURSE ---
To OR per bed, IV 20 right AC with Vancomycin running. Report given to Nel.
[2020-07-24] MEDS: ceFAZolin 2 GM/D5W 50 ML 2 GM/50 ML BAG IVPB (11:22)
--- NOTE | 2020-07-24 11:50 | PM.IMPN ---
Progress Note: A&P Assessment and Plan (1) Closed trimalleolar fracture of right ankle: Code(s): S82.851A - Displaced trimalleolar fracture of right lower leg, initial encounter for closed fracture Status: Acute Assessment and Plan: The patient presented with a displaced, closed right ankle trimalleolar fracture secondary to mechanical fall which was subsequently reduced in the ED. she has been cleared by cardiology for surgery today. Orthopedic surgery has been consulted. Planning for surgical repair today by Dr. Dave weight-bearing and DVT prophylaxis per Orthopedic surgery. analgesics available as needed for pain (2) Essential hypertension: Code(s): I10 - Essential (primary) hypertension Status: Acute Assessment and Plan: Blood pressures reviewed and are generally well controlled, especially given pain. Last BP 149/79. Continue lisinopril and metoprolol monitor blood pressure daily (3) Chronic kidney disease, stage 3: Code(s): N18.30 - Chronic kidney disease, stage 3 unspecified Status: Inactive Assessment and Plan: baseline creatinine appears to be about 1.5. Labs currently consistent with baseline. Monitor renal function closely. Renally dose medications. (4) Chronic anemia: Code(s): D64.9 - Anemia, unspecified Status: Inactive Assessment and Plan: Suspect anemia of chronic disease secondary to CKD. H&H remaining stable. Vital signs are stable with no signs of bleeding. Monitor H&H closely. Transfuse as needed with hemoglobin threshold <7.0 (5) Type 2 diabetes mellitus: Code(s): E11.9 - Type 2 diabetes mellitus without complications Status: Inactive Assessment and Plan: A1c is 8.2. She reports glucose has been running high related to recent cortisone injection in shoulder several days ago. Glucose is better controlled today. Continue Accu-Cheks ACHS, SSI, hypoglycemic protocol Continue Lantus qHS monitor blood sugar trends (6) Coronary artery disease: Qualifiers: Associated angina: without angina Coronary Disease-Associated Artery/Lesion type: unspecified vessel or lesion type [place] vs. transplanted heart: unspecified whether [place] or transplanted heart Qualified Code(s): I25.10 - Atherosclerotic heart disease of [place] coronary artery without angina pectoris Code(s): I25.10 - Atherosclerotic heart disease of [place] coronary artery without angina pectoris Status: Acute Assessment and Plan: she has been evaluated by Cardiology for surgical clearance. Monitor on telemetry Recommended by Cardiology to hold Plavix. Aspirin was resumed. Continue aspirin, imdur, metoprolol, lisinopril per cardiology. Appreciate cardiology input. Subjective Date/time seen: 07/24/20 11:50 Interval history: date of service: 07/24/2020 Bety Vasquez is a 64-year-old female with a history of coronary artery disease status post CABG, valvular heart disease status post mitral and aortic valve replacement, type 2 diabetes mellitus, hypertension, hyperlipidemia, and chronic kidney disease who is seen in follow-up for right ankle fracture. She reports that her pain is better controlled today. She is currently rating her pain as a 4/10. She is awaiting surgery this afternoon. She feels very well otherwise. She denies dizziness, lightheadedness, or weakness. Denies abdominal pain, nausea, vomiting, fever, or chills. She is still NPO and is looking forward to having something to eat after her procedure. She denies urinary symptoms. Her last bowel movement was 2 days ago. She denies bloating or cramping and she is passing gas. She denies shortness of breath, chest pain, palpitations, cough. She has no additional concerns at this time. Review of Systems Review of Systems: All systems reviewed & are unremarkable except as noted in HPI and belo
[2020-07-24] MEDS: ceFAZolin SODIUM 1 GM VIAL IRRIGATION (12:00)
--- NOTE | 2020-07-24 13:10 | P.OP_ITS ---
Procedure Note - Detailed Date of procedure: 07/24/20 Pre-op diagnosis: FRACTURE/DISLOCATION RIGHT ANKLE/DM/CAD/CKD Right trimalleolar ankle fracture status post closed reduction of dislocation Post-op diagnosis: same Procedure performed: Open reduction internal fixation right trimalleolar ankle fracture without fixation of posterior lip Description of procedure: Patient was brought to the operating room and LMA gen eral anesthesia was administered. She received 1.25 g of vancomycin 2 g of Ancef preoperatively. The right foot and ankle were scrubbed with the chlorhexidine cloth.. Bump was placed under the right buttock and roll of towels under the right knee. Right leg and foot were prepped and draped usual fashion all the skin covered with Ioban. Limb was exsanguinated tourniquet elevated to 300 mmHg. A 4 in longitudinal incision was made over the lateral malleolus fracture. I did not specifically visualize the superficial branch of peroneal nerve but it was looked for during the exposure. We were able to achieve an anatomic reduction of the lateral malleolus which was Jain B type and the distal shaft. This was held with 2 bone reduction forceps and a 2 point cm inter fragmentary screw was placed anterior to posterior through a gliding hole and achieved excellent purchase. A 6 hole 1/3 tubular Arthrex locking plate was carefully contoured and applied with a compression screw in the 3rd from most proximal hole and 2 locking screws in the distal fragment and 2 locking screws in the proximal 2 holes. This gave us anatomic reduction of the mortise and the fracture. On the lateral view we could see that the displaced spike of comminuted bone posterior to the fibular fracture remained displaced. This was a piece about an inch long and we were able to tease this into place with a dental pick without disrupting the posterior soft tissue attachments to the fragment and it tended to want to redisplace. We passed a 1. Vicryl cerclage around the fragment around the plate and tied this down which reduced nicely. The medial fragment was anterior colliculus fracture that had a significant obliquity making it more in the coronal plane in the sagittal plane. Anatomic reduction was achieved held with 2 clamps and a single 40 mm 4.0 cannulated screw was inserted and achieved excellent purchase and interfragmentary compression. Had removed 3 3 mm cortical chips from the fracture to affect a reduction. Final x-rays were obtained showing appropriate screw length and anatomic alignment. Stress view x-ray was obtained confirming that the mortise was stable. Tourniquet was released hemostasis was achieved. Wound was irrigated again with antibiotic solution closed with 3 0 subcutaneous Vicryl and glue and a well-padded posterior splint was applied the patient transferred postop recovery room stable condition. Implants: Arthrex small fragment screws plate Anesthesia: GLMA Surgeon: Kai Dave MD Aix Architect: Lashell Estimated blood loss (mL): 10 Tourniquet time (min): 70 Drains: No Packing: No Pathology: none sent Complications: No immediate complications Condition: stable Disposition: PACU
[2020-07-24] MEDS: LACTATED RINGERS 1,000 ML 30 ML IV CONT (13:37)
[2020-07-24] MEDS: fentaNYL CITRATE INJ (*CRX) 100 MCG/2 ML VIAL 25 MCG IV PUSH ×4 (13:45→14:10)
[2020-07-24 13:50] LABS: Glucose Point of Care 159 (65-105)
[2020-07-24] MEDS: ONDANSETRON INJ 4 MG/2 ML VIAL IV PUSH (14:03)
--- NOTE | 2020-07-24 14:16 | SUR.PHASEI ---
1406; PT AWAKE AND RESTING QUIETLY. STATES PAIN AND NAUSEA MUCH BETTER NOW. REPORT FAXED TO FLOOR.
--- NOTE | 2020-07-24 15:00 | PC.NURSE ---
Returned from OR per bed. Report received from Alana.
[2020-07-24] MEDS: oxyCODONE HCL (*CRX) 2.5 MG TAB IR PO ×2 (16:07→20:36)
[2020-07-24] MEDS: SODIUM CHLORIDE 0.9% IV 1,000 ML 80 ML IV CONT (16:09)
[2020-07-24] MEDS: DOCUSATE SODIUM 100 MG CAPSULE PO (16:09)
[2020-07-24] MEDS: ACETAMINOPHEN 500 MG TABLET 1000 MG PO (17:38)
[2020-07-24 18:03] LABS: Glucose Point of Care 136 (65-105)
[2020-07-24 18:03] LABS: Glucose Point of Care 159 (65-105)
[2020-07-24] MEDS: PRAVASTATIN SODIUM 20 MG TABLET 40 MG PO (20:37)
[2020-07-24] MEDS: MORPHINE SULFATE (*CRX) 2 MG/ML INJ IV PUSH (20:38)
[2020-07-24] MEDS: INSULIN GLARGINE (*BKC) 100 UNITS/ML 55 UNITS SUB-Q (20:47)
[2020-07-24 21:54] LABS: Glucose Point of Care 193 (65-105)
[2020-07-25] VITALS (7 sets, daily range): BP systolic 102–124; BP diastolic 47–66; PULSE 71–79; RESP 14–16; TEMP 35.9–36.7; O2SAT 97–99
[2020-07-25] MEDS: ACETAMINOPHEN 500 MG TABLET 1000 MG PO ×4 (00:04→18:39)
[2020-07-25] MEDS: oxyCODONE HCL (*CRX) 5 MG TAB IR PO (00:08)
[2020-07-25] MEDS: oxyCODONE HCL (*CRX) 2.5 MG TAB IR PO ×6 (01:11→21:01)
[2020-07-25 05:53] LABS: Basophils Percent Auto 0.4 % (0.2-1.2); Eosinophils Absolute Auto 0.1 K/mm3 (0-0.3); Eosinophils Percent Auto 0.9 % (0-4.4); Hematocrit 28.3 % (37.0-47.0); Hemoglobin 8.6 g/dL (12.0-15.0); Immature Granulocyte Absolute 0.04 K/mm3 (0.00-0.031); Immature Granulocyte Percent A 0.4 % (0-0.5); Lymphocytes Absolute Auto 1.88 K/mm3 (0.9-3.2); Lymphocytes Percent Auto 20.3 % (18.3-44.2); Mean Corpuscular HGB Conc 30.4 g/dl (32-36); Mean Corpuscular Hemoglobin 24.4 pg (26-34); Mean Corpuscular Volume 80.2 fl (80-100); Mean Platelet Volume 12.2 fl (7.4-10.4); Monocytes Absolute Auto 0.7 K/mm3 (0.1-0.6); Monocytes Percent Auto 7.7 % (2.6-8.5); Neutrophils Absolute Auto 6.5 K/mm3 (1.3-6.7); Neutrophils Percent Auto 70.3 % (45.5-73.1); Platelet Count Result 211 k/mm3 (150-375); Red Blood Count 3.53 M/mm3 (4.2-5.4); White Blood Count 9.3 K/mm3 (4.5-10.0)
[2020-07-25 06:01] LABS: Anion Gap 7 mmol/L (8-16); Blood Urea Nitrogen 26 mg/dL (7-17); Calcium 8.8 mg/dL (8.4-10.2); Carbon Dioxide 28 mmol/L (22-30); Chloride 102 mmol/L (98-107); Estimated CRCL calculation 29 ml/min; Estimated Glomerular Filt Rate 30; Glucose 99 mg/dL (65-105); Potassium 4.2 mmol/L (3.4-5.0); Sodium 137 mmol/L (137-145)
--- NOTE | 2020-07-25 07:33 | WPDANESPN ---
Anes - Prog Note Post-Op Date/Time: 07/25/20 07:33 Cardiovascular status: normal Respiratory status: normal Airway patency: baseline Mental status: baseline Post-Op hydration status: normal Vital Signs: Last Vital Signs Temp 36.2 C L 07/25/20 05:38 Pulse 79 07/25/20 05:38 Resp 16 07/25/20 05:38 BP 124/60 07/25/20 05:38 Pulse Ox 99 07/25/20 05:38 Pain Score (VAS): no complaints I/O: Intake & Output 07/24/20 07/24/20 07/25/20 15:59 23:59 07:59 Intake Total 700 1100 850 Output Total 1900 Balance 700 1100 -1050 Laboratory Tests 07/25/20 05:02 07/25/20 05:02 07/24/20 07/24/20 07/24/20 05:35 07:29 13:48 WBC RBC Hgb Hct MCV MCH MCHC RDW Plt Count MPV Immature Gran % (Auto) Neut % (Auto) Lymph % (Auto) [place] % (Auto) Eos % (Auto) Baso % (Auto) Lymph # (Auto) [place] # (Auto) Eos # (Auto) Baso # (Auto) Abs Immat Gran (auto) Absolute Neuts (auto) Absolute Nucleated RBC Nucleated RBC % Sodium Potassium Chloride Carbon Dioxide Anion Gap BUN Creatinine Estim Creat Clear Calc Estimated GFR Glucose POC Capillary Glucose 159 H 159 H Hemoglobin A1c 8.2 H Calcium 07/24/20 07/24/20 07/24/20 16:59 17:58 20:45 WBC RBC Hgb Hct MCV MCH MCHC RDW Plt Count MPV Immature Gran % (Auto) Neut % (Auto) Lymph % (Auto) [place] % (Auto) Eos % (Auto) Baso % (Auto) Lymph # (Auto) [place] # (Auto) Eos # (Auto) Baso # (Auto) Abs Immat Gran (auto) Absolute Neuts (auto) Absolute Nucleated RBC Nucleated RBC % Sodium Potassium Chloride Carbon Dioxide Anion Gap BUN Creatinine Estim Creat Clear Calc Estimated GFR Glucose POC Capillary Glucose 136 H 159 H 193 H Hemoglobin A1c Calcium 07/25/20 07/25/20 05:02 05:02 WBC 9.3 RBC 3.53 L Hgb 8.6 L Hct 28.3 L MCV 80.2 MCH 24.4 L MCHC 30.4 L RDW 15.0 H Plt Count 211 MPV 12.2 H Immature Gran % (Auto) 0.4 Neut % (Auto) 70.3 Lymph % (Auto) 20.3 [place] % (Auto) 7.7 Eos % (Auto) 0.9 Baso % (Auto) 0.4 Lymph # (Auto) 1.88 [place] # (Auto) 0.7 H Eos # (Auto) 0.1 Baso # (Auto) 0.0 Abs Immat Gran (auto) 0.04 H Absolute Neuts (auto) 6.5 Absolute Nucleated RBC 0.0 Nucleated RBC % 0.0 Sodium 137 Potassium 4.2 Chloride 102 Carbon Dioxide 28 Anion Gap 7 L BUN 26 H Creatinine 1.70 H Estim Creat Clear Calc 29 Estimated GFR 30 L Glucose 99 POC Capillary Glucose Hemoglobin A1c Calcium 8.8 Post-procedural complaints: none Patient Feedback: Patient satisfied with anesthetic care.
[2020-07-25] MEDS: PANTOPRAZOLE 40 MG TABLET PO (08:10)
[2020-07-25] MEDS: DOCUSATE SODIUM 100 MG CAPSULE PO ×2 (08:10→16:35)
[2020-07-25] MEDS: CHOLECALCIFEROL 1,000 UNITS TABLET 5000 UNITS PO (08:10)
[2020-07-25] MEDS: METOPROLOL SUCCINATE EXT REL 100 MG TABCR PO (08:11)
[2020-07-25] MEDS: ASPIRIN 81 MG ENTERIC TABLET PO (08:11)
[2020-07-25] MEDS: CALCIUM CARBONATE (OSCAL) 500 MG TABLET PO (08:11)
[2020-07-25] MEDS: ISOSORBIDE MONONITRATE 60 MG TAB.ER.24H PO (08:11)
[2020-07-25] MEDS: CLOPIDOGREL BISULFATE 75 MG TABLET PO (08:11)
[2020-07-25] MEDS: EZETIMIBE 10 MG TABLET PO (08:11)
[2020-07-25] MEDS: CHLORTHALIDONE 25 MG TABLET PO (08:11)
[2020-07-25] MEDS: polyethylene glycoL 3350 17 GM POWD.PACK PO (08:12)
[2020-07-25 08:46] LABS: Glucose Point of Care 144 (65-105)
--- NOTE | 2020-07-25 09:10 | P.PNIM_ITS ---
Progress Note: A&P Assessment and Plan (1) Closed trimalleolar fracture of right ankle: Code(s): S82.851A - Displaced trimalleolar fracture of right lower leg, initial encounter for closed fracture Status: Acute Assessment and Plan: The patient presented with a displaced, closed right ankle trimalleolar fracture secondary to mechanical fall which was subsequently reduced in the ED. She was cleared by Cardiology for surgical procedure and is now s/p ORIF by Dr. Dave on 07/24/2020. She tolerated the procedure well. * Orthopedic surgery has been consulted and input is appreciated * weight-bearing and DVT prophylaxis per Orthopedic surgery. * analgesics available as needed for pain * Planning to begin therapy today. Disposition will be dependent upon therapy. (2) Essential hypertension: Code(s): I10 - Essential (primary) hypertension Status: Acute Assessment and Plan: Initial blood pressure is elevated, likely due to pain. Blood pressure is now well controlled. Last BP 124/60. * Continue lisinopril and metoprolol * monitor blood pressure daily (3) Chronic kidney disease, stage 3: Code(s): N18.30 - Chronic kidney disease, stage 3 unspecified Status: Inactive Assessment and Plan: baseline creatinine appears to be about 1.5. Getting consistent with baseline. She did have a slight bump today to 1.7 * Monitor renal function closely. Renally dose medications. * She is receiving IV vancomycin per orthopedic surgery. Will monitor kidney function closely with this medication. Discontinue when clinically appropriate (4) Chronic anemia: Code(s): D64.9 - Anemia, unspecified Status: Inactive Assessment and Plan: Suspect anemia of chronic disease secondary to CKD. Vital signs are stable. Slight decline in H&H which may be secondary to surgery and dilutional changes. No evidence to suggest active bleeding. * Monitor H&H closely. Transfuse as needed with hemoglobin threshold <7.0 * She reports history of anemia in which she previously required iron supplementation. Will evaluate iron panel. (5) Type 2 diabetes mellitus: Code(s): E11.9 - Type 2 diabetes mellitus without complications Status: Inactive Assessment and Plan: A1c is 8.2. She reports glucose has been running high related to recent cortisone injection in shoulder several days ago. Glucose is better controlled today. * Continue Accu-Cheks ACHS, SSI, hypoglycemic protocol * Continue Lantus qHS * monitor blood sugar trends (6) Coronary artery disease: Qualifiers: Associated angina: without angina Coronary Disease-Associated Artery/Lesion type: unspecified vessel or lesion type [place] vs. transplanted heart: unspecified whether [place] or transplanted heart Qualified Code(s): I25.10 - Atherosclerotic heart disease of [place] coronary artery without angina pectoris Code(s): I25.10 - Atherosclerotic heart disease of [place] coronary artery without angina pectoris Status: Acute Assessment and Plan: She was evaluated by Cardiology for surgical clearance. She is asymptomatic. * Recommended by Cardiology to hold Plavix prior to procedure. Plavix resumed today per Orthopedic surgery. * Continue aspirin, imdur, metoprolol, lisinopril per cardiology. * Appreciate cardiology input. Subjective Date/time seen: 07/25/20 09:10 Interval history: date of service: 07/24/2020 Bety Vasquez is a 64-year-old female with a history of coronary
--- NOTE | 2020-07-25 09:10 | PM.IMPN ---
Progress Note: A&P Assessment and Plan (1) Closed trimalleolar fracture of right ankle: Code(s): S82.851A - Displaced trimalleolar fracture of right lower leg, initial encounter for closed fracture Status: Acute Assessment and Plan: The patient presented with a displaced, closed right ankle trimalleolar fracture secondary to mechanical fall which was subsequently reduced in the ED. She was cleared by Cardiology for surgical procedure and is now s/p ORIF by Dr. Dave on 07/24/2020. She tolerated the procedure well. Orthopedic surgery has been consulted and input is appreciated weight-bearing and DVT prophylaxis per Orthopedic surgery. analgesics available as needed for pain Planning to begin therapy today. Disposition will be dependent upon therapy. (2) Essential hypertension: Code(s): I10 - Essential (primary) hypertension Status: Acute Assessment and Plan: Initial blood pressure is elevated, likely due to pain. Blood pressure is now well controlled. Last BP 124/60. Continue lisinopril and metoprolol monitor blood pressure daily (3) Chronic kidney disease, stage 3: Code(s): N18.30 - Chronic kidney disease, stage 3 unspecified Status: Inactive Assessment and Plan: baseline creatinine appears to be about 1.5. Getting consistent with baseline. She did have a slight bump today to 1.7 Monitor renal function closely. Renally dose medications. She is receiving IV vancomycin per orthopedic surgery. Will monitor kidney function closely with this medication. Discontinue when clinically appropriate (4) Chronic anemia: Code(s): D64.9 - Anemia, unspecified Status: Inactive Assessment and Plan: Suspect anemia of chronic disease secondary to CKD. Vital signs are stable. Slight decline in H&H which may be secondary to surgery and dilutional changes. No evidence to suggest active bleeding. Monitor H&H closely. Transfuse as needed with hemoglobin threshold <7.0 She reports history of anemia in which she previously required iron supplementation. Will evaluate iron panel. (5) Type 2 diabetes mellitus: Code(s): E11.9 - Type 2 diabetes mellitus without complications Status: Inactive Assessment and Plan: A1c is 8.2. She reports glucose has been running high related to recent cortisone injection in shoulder several days ago. Glucose is better controlled today. Continue Accu-Cheks ACHS, SSI, hypoglycemic protocol Continue Lantus qHS monitor blood sugar trends (6) Coronary artery disease: Qualifiers: Associated angina: without angina Coronary Disease-Associated Artery/Lesion type: unspecified vessel or lesion type [place] vs. transplanted heart: unspecified whether [place] or transplanted heart Qualified Code(s): I25.10 - Atherosclerotic heart disease of [place] coronary artery without angina pectoris Code(s): I25.10 - Atherosclerotic heart disease of [place] coronary artery without angina pectoris Status: Acute Assessment and Plan: She was evaluated by Cardiology for surgical clearance. She is asymptomatic. Recommended by Cardiology to hold Plavix prior to procedure. Plavix resumed today per Orthopedic surgery. Continue aspirin, imdur, metoprolol, lisinopril per cardiology. Appreciate cardiology input. Subjective Date/time seen: 07/25/20 09:10 Interval history: date of service: 07/24/2020 Bety Vasquez is a 64-year-old female with a history of coronary artery disease status post CABG, valvular heart disease status post mitral and aortic valve replacement, type 2 diabetes mellitus, hypertension, hyperlipidemia, and chronic kidney disease who is seen in follow-up for right ankle fracture. She is now s/p surgical correction. She had already the procedure well. At this time, she has no pain. She has not been out of bed yet but will be starting therapy lat
[2020-07-25 11:43] LABS: Glucose Point of Care 154 (65-105)
--- NOTE | 2020-07-25 13:13 | PM.PNORT ---
Progress Note: A&P Additional Plan avss. Hg 8.6. Feels and looks well. Plan is home to her house when ready and son to stay with her. Sensation intact foot. comfortable. Plan resume plavix tomorrow Subjective Subjective Date/Time Seen: 07/25/20 13:13 Objective Data Vital Signs Vital Signs: Vital Signs - 24 hr 07/24/20 13:21 07/24/20 13:35 07/24/20 13:50 Temperature 37.3 C Pulse Rate 85 83 79 Respiratory Rate 10 L 13 14 Blood Pressure 127/70 126/69 127/71 Pulse Oximetry 100 100 95 07/24/20 14:05 07/24/20 14:20 07/24/20 14:35 Temperature Pulse Rate 78 78 78 Respiratory Rate 14 12 12 Blood Pressure 117/67 128/61 116/68 Pulse Oximetry 95 94 97 07/24/20 14:40 07/24/20 14:55 07/24/20 15:25 Temperature 37.0 C 37.1 C 37.0 C Pulse Rate 77 77 77 Respiratory Rate 16 16 16 Blood Pressure 128/59 L 120/58 L 120/59 L Pulse Oximetry 98 98 98 07/24/20 16:25 07/24/20 20:25 07/25/20 00:25 Temperature 37.3 C 36.8 C 36.7 C Pulse Rate 81 82 75 Respiratory Rate 16 16 16 Blood Pressure 122/55 L 115/48 L 118/54 L Pulse Oximetry 98 98 97 07/25/20 05:38 07/25/20 08:11 07/25/20 10:00 Temperature 36.2 C L 35.9 C L Pulse Rate 79 71 73 Respiratory Rate 16 14 Blood Pressure 124/60 124/53 L Pulse Oximetry 99 98 Intake/Output Intake/Output: Intake & Output 07/22/20 07/23/20 07/24/20 07/25/20 23:59 23:59 23:59 23:59 Intake Total 1000 1800 1940 Output Total 1600 2600 Balance 1000 200 -660 Meds/Results Medications: Active Medications Generic Name Dose Route Start Last Admin Trade Name Freq PRN Reason Stop Dose Admin Acetaminophen 1,000 mg 07/24/20 18:00 07/25/20 11:51 Acetaminophen 500 Mg Tablet PO 1,000 mg Q6HR HARVEY Administration Aspirin 81 mg 07/24/20 09:00 07/25/20 08:11 Aspirin 81 Mg Enteric Tablet PO 81 mg QAM HARVEY Administration Calcium Carbonate 500 mg 07/25/20 09:00 07/25/20 08:11 Calcium Carbonate (Oscal) 500 Mg Tablet PO 08/24/20 09:01 500 mg DAILY HARVEY Administration Chlorthalidone 25 mg 07/24/20 09:00 07/25/20 08:11 Chlorthalidone 25 Mg Tablet PO 25 mg DAILY HARVEY Administration Clopidogrel Bisulfate 75 mg 07/25/20 09:00 07/25/20 08:11 Clopidogrel Bisulfate 75 Mg Tablet PO 75 mg DAILY HARVEY Administration Dextrose 12.5 gm 07/24/20 15:56 Dextrose 50% 25 Gm/50 Ml Syringe IV PUSH PRN PRN Hypoglycemia Protocol Docusate Sodium 100 mg 07/24/20 17:00 07/25/20 08:10 Docusate Sodium 100 Mg Capsule PO 100 mg BID HARVEY Administration Ezetimibe 10 mg 07/24/20 09:00 07/25/20 08:11 Ezetimibe 10 Mg Tablet PO 10 mg DAILY HARVEY Administration Glucagon 1 mg 07/24/20 15:56 Glucagon For Inj 1 Mg Vial IM PRN PRN Hypoglycemia Protocol Glucose 15 gm 07/24/20 15:56 Glucose Oral Gel 15 Gm Of Glucse In 37.5 Gm Tube PO PRN PRN Hypoglycemia Protocol Dextrose 1,000 mls @ 100 mls/hr 07/24/20 15:56 Dextrose 5% 1,000 Ml IVPB PRN PRN Hypoglycemia Protocol Insulin Aspart 3 - 6 units 07/24/20 17:00 07/25/20 11:44 Insulin Aspart (*Bkc) 100 Units/Ml SUB-Q Not Given TIDWM [facility] Protocol Insulin Glargine 55 units 07/24/20 21:00 07/24/20 20:47 Insulin Glargine (*Bkc) 100 Units/Ml SUB-Q 08/23/20 18:01 55 units HS [facility] Administration Isosorbide Mononitrate 60 mg 07/24/20 09:00 07/25/20 08:11 Isosorbide Mononitrate 60 Mg Tab.Er.24h PO 60 mg DAILY HARVEY Administration Magnesium Hydroxide 30 ml 07/24/20 14:40 Magnesium Hydroxide Susp 30 Ml Udc PO BID PRN Constipation Metoprolol Succinate 100 mg 07/24/20 09:00 07/25/20 08:11 Metoprolol Succinate Ext Rel 100 Mg Tabcr PO 100 mg DAILY HARVEY Administration Morphine Sulfate 2 mg 07/24/20 14:40 07/24/20 20:38 Morphine Sulfate (*Crx) 2 Mg/Ml Inj IV PUSH 2 mg Q3H PRN Administration Pain Rated 7-10 Ondansetron HCl 4 mg 07/24/20 14:40 Ondansetr
[2020-07-25 16:35] LABS: Glucose Point of Care 145 (65-105)
[2020-07-25] MEDS: PRAVASTATIN SODIUM 20 MG TABLET 40 MG PO (21:01)
[2020-07-25] MEDS: INSULIN GLARGINE (*BKC) 100 UNITS/ML 55 UNITS SUB-Q (21:03)
[2020-07-25 22:05] LABS: Glucose Point of Care 157 (65-105)
[2020-07-26] MEDS: oxyCODONE HCL (*CRX) 2.5 MG TAB IR PO ×4 (00:38→14:20)
[2020-07-26] MEDS: ACETAMINOPHEN 500 MG TABLET 1000 MG PO ×3 (00:38→12:11)
[2020-07-26 01:39] VITALS: BP 110/55; PULSE 78; RESP 16; TEMP 36.2; O2SAT 100
[2020-07-26 05:56] VITALS: BP 120/54; PULSE 81; RESP 16; TEMP 36.3; O2SAT 98
[2020-07-26 06:18] LABS: Hematocrit 27.2 % (37.0-47.0); Hemoglobin 8.3 g/dL (12.0-15.0); Mean Corpuscular HGB Conc 30.5 g/dl (32-36); Mean Corpuscular Hemoglobin 24.6 pg (26-34); Mean Corpuscular Volume 80.5 fl (80-100); Mean Platelet Volume 12.1 fl (7.4-10.4); Platelet Count Result 190 k/mm3 (150-375); Red Blood Count 3.38 M/mm3 (4.2-5.4); Red Cell Distribution Width 14.7 % (11.5-14.5); White Blood Count 8.9 K/mm3 (4.5-10.0)
[2020-07-26 06:35] LABS: Anion Gap 7 mmol/L (8-16); Blood Urea Nitrogen 26 mg/dL (7-17); Calcium 8.9 mg/dL (8.4-10.2); Carbon Dioxide 30 mmol/L (22-30); Chloride 100 mmol/L (98-107); Estimated CRCL calculation 31 ml/min; Estimated Glomerular Filt Rate 32; Glucose 113 mg/dL (65-105); Potassium 4.2 mmol/L (3.4-5.0); Sodium 137 mmol/L (137-145)
[2020-07-26 07:38] LABS: Glucose Point of Care 96 (65-105)
[2020-07-26 09:19] VITALS: PULSE 79
[2020-07-26] MEDS: EZETIMIBE 10 MG TABLET PO (09:19)
[2020-07-26] MEDS: CLOPIDOGREL BISULFATE 75 MG TABLET PO (09:19)
[2020-07-26] MEDS: PANTOPRAZOLE 40 MG TABLET PO (09:19)
[2020-07-26] MEDS: METOPROLOL SUCCINATE EXT REL 100 MG TABCR PO (09:19)
[2020-07-26] MEDS: ISOSORBIDE MONONITRATE 60 MG TAB.ER.24H PO (09:19)
[2020-07-26] MEDS: CALCIUM CARBONATE (OSCAL) 500 MG TABLET PO (09:20)
[2020-07-26] MEDS: CHLORTHALIDONE 25 MG TABLET PO (09:20)
[2020-07-26] MEDS: polyethylene glycoL 3350 17 GM POWD.PACK PO (09:20)
[2020-07-26] MEDS: DOCUSATE SODIUM 100 MG CAPSULE PO (09:20)
[2020-07-26] MEDS: CHOLECALCIFEROL 1,000 UNITS TABLET 5000 UNITS PO (09:20)
[2020-07-26] MEDS: ASPIRIN 81 MG ENTERIC TABLET PO (09:20)
[2020-07-26 10:04] LABS: Iron 31 ug/dL (37-170)
[2020-07-26 10:13] LABS: Percent Iron Saturation 7 % (20-50)
--- NOTE | 2020-07-26 11:11 | PM.PNORT ---
Progress Note: A&P Additional Plan POD 2 alert pain is min. pt wishes to only use tylenol for pain, splint is intact, no numbness. Pt is doing well, ok to d/c when hospitialist feels she is stable Subjective Subjective Date/Time Seen: 07/26/20 11:11 Objective Data Vital Signs Vital Signs: Vital Signs - 24 hr 07/25/20 14:00 07/25/20 18:00 07/25/20 20:54 Temperature 36.3 C L 36.6 C 36.4 C L Pulse Rate 71 76 79 Respiratory Rate 14 14 16 Blood Pressure 102/47 L 105/53 L 115/66 Pulse Oximetry 97 97 99 07/26/20 01:39 07/26/20 05:56 07/26/20 09:19 Temperature 36.2 C L 36.3 C L Pulse Rate 78 81 79 Respiratory Rate 16 16 Blood Pressure 110/55 L 120/54 L Pulse Oximetry 100 98 Intake/Output Intake/Output: Intake & Output 07/23/20 07/24/20 07/25/20 07/26/20 23:59 23:59 23:59 23:59 Intake Total 1000 1800 2380 840 Output Total 1600 3200 1500 Balance 1000 200 820 -660 Meds/Results Medications: Active Medications Generic Name Dose Route Start Last Admin Trade Name Freq PRN Reason Stop Dose Admin Acetaminophen 1,000 mg 07/24/20 18:00 07/26/20 05:15 Acetaminophen 500 Mg Tablet PO 1,000 mg Q6HR HARVEY Administration Aspirin 81 mg 07/24/20 09:00 07/26/20 09:20 Aspirin 81 Mg Enteric Tablet PO 81 mg QAM HARVEY Administration Calcium Carbonate 500 mg 07/25/20 09:00 07/26/20 09:20 Calcium Carbonate (Oscal) 500 Mg Tablet PO 08/24/20 09:01 500 mg DAILY HARVEY Administration Chlorthalidone 25 mg 07/24/20 09:00 07/26/20 09:20 Chlorthalidone 25 Mg Tablet PO 25 mg DAILY HARVEY Administration Clopidogrel Bisulfate 75 mg 07/25/20 09:00 07/26/20 09:19 Clopidogrel Bisulfate 75 Mg Tablet PO 75 mg DAILY HARVEY Administration Dextrose 12.5 gm 07/24/20 15:56 Dextrose 50% 25 Gm/50 Ml Syringe IV PUSH PRN PRN Hypoglycemia Protocol Docusate Sodium 100 mg 07/24/20 17:00 07/26/20 09:20 Docusate Sodium 100 Mg Capsule PO 100 mg BID HARVEY Administration Ezetimibe 10 mg 07/24/20 09:00 07/26/20 09:19 Ezetimibe 10 Mg Tablet PO 10 mg DAILY HARVEY Administration Glucagon 1 mg 07/24/20 15:56 Glucagon For Inj 1 Mg Vial IM PRN PRN Hypoglycemia Protocol Glucose 15 gm 07/24/20 15:56 Glucose Oral Gel 15 Gm Of Glucse In 37.5 Gm Tube PO PRN PRN Hypoglycemia Protocol Dextrose 1,000 mls @ 100 mls/hr 07/24/20 15:56 Dextrose 5% 1,000 Ml IVPB PRN PRN Hypoglycemia Protocol Insulin Aspart 3 - 6 units 07/24/20 17:00 07/26/20 08:36 Insulin Aspart (*Bkc) 100 Units/Ml SUB-Q Not Given [facility] Protocol Insulin Glargine 55 units 07/24/20 21:00 07/25/20 21:03 Insulin Glargine (*Bkc) 100 Units/Ml SUB-Q 08/23/20 18:01 55 units HS HARVEY Administration Isosorbide Mononitrate 60 mg 07/24/20 09:00 07/26/20 09:19 Isosorbide Mononitrate 60 Mg Tab.Er.24h PO 60 mg DAILY HARVEY Administration Magnesium Hydroxide 30 ml 07/24/20 14:40 Magnesium Hydroxide Susp 30 Ml Udc PO BID PRN Constipation Metoprolol Succinate 100 mg 07/24/20 09:00 07/26/20 09:19 Metoprolol Succinate Ext Rel 100 Mg Tabcr PO 100 mg DAILY HARVEY Administration Morphine Sulfate 2 mg 07/24/20 14:40 07/24/20 20:38 Morphine Sulfate (*Crx) 2 Mg/Ml Inj IV PUSH 2 mg Q3H PRN Administration Pain Rated 7-10 Ondansetron HCl 4 mg 07/24/20 14:40 Ondansetron Inj 4 Mg/2 Ml Vial IV PUSH Q4H PRN Nausea And Vomiting Oxycodone HCl 2.5 mg 07/24/20 17:00 07/26/20 09:19 Oxycodone Hcl (*Crx) 2.5 Mg Tab Ir PO 2.5 mg Q4HR HARVEY Administration Oxycodone HCl 5 mg 07/24/20 14:40 07/25/20 00:08 Oxycodone Hcl (*Crx) 5 Mg Tab Ir PO 5 mg Q4H PRN Administration Pain Rated 4-6 Pantoprazole Sodium 40 mg 07/24/20 09:00 07/26/20 09:19 Pantoprazole 40 Mg Tablet PO 40 mg QAM HARVEY Administration Polyethylene Glycol 17 gm 07/25/20 09:00 07/26/20 09:20 Polyeth
[2020-07-26 11:35] LABS: Glucose Point of Care 134 (65-105)
[2020-07-26 14:00] VITALS: BP 111/54; PULSE 84; RESP 19; TEMP 36.6; O2SAT 99
--- NOTE | 2020-07-26 16:08 | PM.DS ---
DS: Admitting Diagnosis Admitting Diagnosis Admitting Diagnosis: Right trimalleolar ankle fracture DS: Discharge Diagnosis Discharge Diagnosis (1) Closed trimalleolar fracture of right ankle: Code(s): S82.851A - Displaced trimalleolar fracture of right lower leg, initial encounter for closed fracture Status: Acute Assessment and Plan: The patient presented with a displaced, closed right ankle trimalleolar fracture secondary to mechanical fall which was subsequently reduced in the ED. She was cleared by Cardiology for surgical procedure and underwent ORIF by Dr. Dave on 07/24/2020. She tolerated the procedure well and her pain was well controlled following. She participated in PT/ OT during her stay. She is to remain nonweightbearing of the right lower extremity and will use a walker to ambulate around the home. She lives at home alone, however her son is available to help her any time. she will follow-up with Dr. Dave in 1.5 weeks. (2) Essential hypertension: Code(s): I10 - Essential (primary) hypertension Status: Acute Assessment and Plan: Initial blood pressures were elevated, likely due to pain, however stabilized and were well controlled following procedure. Continue lisinopril and metoprolol (3) Chronic kidney disease, stage 3: Code(s): N18.30 - Chronic kidney disease, stage 3 unspecified Status: Inactive Assessment and Plan: Baseline creatinine appears to be about 1.5. renal function was monitored and remained consistent with her baseline. (4) Chronic anemia: Code(s): D64.9 - Anemia, unspecified Status: Acute Assessment and Plan: Suspect anemia of chronic disease secondary to CKD. Vital signs stable. Slight decline in H&H noted postoperatively which may be secondary to surgery and dilutional changes. She had no signs or symptoms to suggest active bleeding. Iron panel evaluated which did demonstrate iron deficiency. She reports history of being on iron supplementation which was discontinued. I have resumed oral iron supplementation and she will need to follow-up with her PCP for further monitoring. (5) Type 2 diabetes mellitus: Code(s): E11.9 - Type 2 diabetes mellitus without complications Status: Inactive Assessment and Plan: A1c is 8.2. She reports glucose had been running high related to recent cortisone injection in shoulder several days prior to admission. home Lantus was continued as well as sliding scale insulin. Blood sugars were fairly well controlled. Resume home regimen. I encouraged her to monitor her blood sugars t.i.d. and record for review and further medication adjustment per PCP. (6) Coronary artery disease: Qualifiers: Associated angina: without angina Coronary Disease-Associated Artery/Lesion type: unspecified vessel or lesion type [place] vs. transplanted heart: unspecified whether [place] or transplanted heart Qualified Code(s): I25.10 - Atherosclerotic heart disease of [place] coronary artery without angina pectoris Code(s): I25.10 - Atherosclerotic heart disease of [place] coronary artery without angina pectoris Status: Acute Assessment and Plan: She was evaluated by Cardiology for surgical clearance. Plavix was held prior to procedure and then resumed prior to discharge. Continue home medication regimen including aspirin, Plavix, imdur, metoprolol, lisinopril per cardiology. DS: Summary Hospital Course Reason for hospitalization: right ankle fracture Hospital Course: date of admission: 07/23/2020 date of discharge: 07/26/2020 Bety Vasquez is a 64-year-old female with a history of coronary artery disease status post CABG, valvular heart disease status post mitral and aortic valve replacement, type 2 diabetes mellitus, hypertension, hyperlipidemia, and chronic kidney disease who presented to the emergency department on 07/23/2020 with complain
== END 2020-07-26 16:41 | disposition home or self-care (01) | DRG 494 ==
LOC: ANHED 15:02 → ANH2MED 16:50
PROVIDERS: Orthopaedic Surgery; Physician Assistant; Physician Assistant Surgical; Admitting Provider Internal Medicine; Emergency Provider Emergency Medicine; PCP Physician Assistant; Visit Provider Physician Assistant
PROC: 0QSJ04Z Reposition Right Fibula with Internal Fixation Device, Open Approach (ICD-10-PCS; principal; 2020-07-24 11:00)
DX: S82.851A Displaced trimalleolar fracture of right lower leg, initial encounter for closed fracture (principal); W00.0XXA Fall on same level due to ice and snow, initial encounter; I10 Essential (primary) hypertension; I12.9 Hypertensive chronic kidney disease with stage 1 through stage 4 chronic kidney disease, or unspecified chronic kidney disease; E11.22 Type 2 diabetes mellitus with diabetic chronic kidney disease; N18.30 Chronic kidney disease, stage 3 unspecified; D64.9 Anemia, unspecified; I25.10 Atherosclerotic heart disease of native coronary artery without angina pectoris; K21.9 Gastro-esophageal reflux disease without esophagitis; E78.5 Hyperlipidemia, unspecified
CPT/HCPCS: 27818; 36415; 73600; 73610; 80048; 80053; 82728; 82948; 83036; 83540; 83550; 83735; 85025; 85027; 85610; 85730; 93005; 96374; 97110; 97116; 97161; 97165; 97530; 97535; 99285; A9270; C1713; C1769; C8929; J0690; J1170; J1815; J2250; J2270; J2405; J2704; J3010; J3370; J7030; J7120; Q9957

== ENCOUNTER → 2021-05-06 10:22 | Outpatient (CLI) | payer MEDICARE, OTHER, SELFPAY ==
--- NOTE | ~2021-05-06 | MM_ITS ---
EXAMINATION: MM screening alisha BI w sandie HISTORY: Screening mammogram, family history of breast cancer in her sister. TECHNIQUE: Craniocaudal and mediolateral oblique 3-D tomosynthesis images were obtained and synthetic 2-D images were generated. CAD analysis was submitted and interpreted. COMPARISON: 05/03/2020, 05/01/2019 BREAST PARENCHYMAL COMPOSITION: The breasts are almost entirely fatty. FINDINGS: There is no evidence of suspicious mass, calcification, or architectural distortion to sugg est malignancy in either breast. There has been no suspicious interval change. IMPRESSION: 1. No mammographic evidence of malignancy. 2. Recommend routine screening mammography in one year. BI-RADS Category 1: Negative Reviewed, dictated and finalized at location A. [employer]
== END ==
PROVIDERS: PCP Physician Assistant; Visit Provider Obstetrics & Gynecology Gynecology
DX: Z12.31 Encounter for screening mammogram for malignant neoplasm of breast (principal)
CPT/HCPCS: 77063; 77067

== ENCOUNTER 2021-05-26 00:19 | Day surgery (SDC) | payer MEDICARE, OTHER, SELFPAY ==
[2021-05-09 15:06] VITALS: BMI 32.9
--- NOTE | 2021-05-25 13:50 | PM.HPGS ---
History of Present Illness History of Present Illness Consent: Risks, benefits, and alternatives have been discussed and questions answered. Patient agrees to proceed with procedure. Chief complaint: family hx of colon ca Narrative: Bety Vasquez is a 65 year old female Referred for colon cancer screening. Her father had colon cancer. Review of Systems Review of Systems: All systems reviewed & are unremarkable except as noted in HPI and below PMFSH Past Medical History Medical History Anxiety Arthritis Chronic anemia Chronic kidney disease, stage 3 Coronary artery disease Status post three-vessel CABG in 2002. She is a patient of Dr. Vadim Hernández. Essential hypertension Gastroesophageal reflux disease Osteopenia Type 2 diabetes mellitus Recent hemoglobin A1c of 6.9%. Vitamin D deficiency Surgical History Surgical History History of aortic valve replacement (~07/2018) Bioprosthetic tissue valve replacement done at [facility]. History of bilateral cataract extraction History of bladder suspension procedure History of bunionectomy History of section History of cholecystectomy History of coronary artery bypass graft x 3 (~04/2003) Performed at [facility]. History of hysterectomy History of mitral valve replacement (~07/2018) Bioprosthetic tissue valve replacement done at [facility]. Status post mitral valve annuloplasty (~04/2003) Family History Family History Father Carcinoma of colon Heart disease Mother Family history of lung cancer Sibling Heart disease Other Diabetes mellitus Family history of cardiovascular disease Family history of chronic obstructive pulmonary disease Family history of glaucoma Hypertension Social History Social History Social History: Surrogate decision maker: Vadim Vasquez, son. Code status: Full code. Smoking status: Never smoker Second hand tobacco smoke exposure: No Alcohol intake: never Substance use: never Substance use type: does not use Living arrangements: with family Additional living arrangements comments: The patient is and lives in her own home in [place]. Two adult sons. Additional occupation/education comments: Retired. Previously worked for an insurance agency. Gender identity (if verbalized by the patient): Female Spiritual care concerns: No Meds Home Medications and Allergies Home Medications Medication Instructions Recorded Confirmed Type blood sugar diagnostic #10 each 05/08/19 05/02/21 History pen needle, diabetic 32 gauge x #10 each 05/08/19 05/02/21 History aspirin 81 mg tablet,delayed 81 mg PO DAILY 07/21/19 05/09/21 History release clopidogrel 75 mg tablet 75 mg PO DAILY 07/21/19 05/09/21 History ezetimibe 10 mg tablet 10 mg PO DAILY 07/21/19 05/09/21 History isosorbide mononitrate 60 mg 60 mg PO DAILY 07/21/19 05/09/21 History tablet,extended release 24 hr lisinopril 20 mg tablet 20 mg PO DAILY 07/21/19 05/09/21 History pravastatin 40 mg tablet 40 mg PO QPM tablet 11/25/19 05/09/21 History metoprolol succinate 100 mg 100 mg PO DAILY 04/26/20 05/09/21 History tablet,extended release 24 hr pantoprazole 40 mg PO QAM 07/23/20 05/09/21 History insulin degludec [Tresiba 55 unit SUB-Q QPM 05/09/21 05/09/21 History FlexTouch U-200] semaglutide [Ozempic] 1 mg SUBCUT WEEKLY 05/09/21 05/09/21 History Allergies Allergy/AdvReac Type Severity Reaction Status Date / Time No Known Allergies Allergy Verified 05/26/21 08:07 Exam Resp: Auscultation: clear to auscultation bilaterally Cardio: Rate: regular rate Rhythm: regular rhythm GI: GI Palp: Yes Soft to palpation and No Tenderness to palpation pres
[2021-05-26 08:09] VITALS: BP 138/77; PULSE 87; RESP 18; TEMP 36.5; O2SAT 97
[2021-05-26] MEDS: LACTATED RINGERS 1,000 ML 150 ML IV CONT (08:20)
[2021-05-26] MEDS: AMPICILLIN 2 GM/NS 100 ML 2 GM/100 ML BAG IVPB (08:21)
--- NOTE | 2021-05-26 08:27 | WPDANESEPPF ---
Anes - Initial Pre Proc Eval Procedure: Operation Date: 05/26/21 09:15 Proposed Procedures p Screening Colonoscopy - Deon Hood MD Date/Time: 05/26/21 08:27 Surgeon: Deon Hood MD Pre Op Diagnosis: family hx of colon ca Patient Data Age: 65 Gender: F Height: 1.55 m Weight: 78.9 kg Last Vital Signs Temp 36.5 C 05/26/21 08:09 Pulse 87 05/26/21 08:09 Resp 18 05/26/21 08:09 BP 138/77 05/26/21 08:09 Pulse Ox 97 05/26/21 08:09 Allergies Allergy/AdvReac Type Severity Reaction Status Date / Time No Known Allergies Allergy Verified 05/26/21 08:07 Home Medications Medication Instructions Recorded Confirmed Type blood sugar diagnostic #10 each 05/08/19 05/02/21 History pen needle, diabetic 32 gauge x #10 each 05/08/19 05/02/21 History /32 aspirin 81 mg tablet,delayed 81 mg PO DAILY 07/21/19 05/09/21 History release clopidogrel 75 mg tablet 75 mg PO DAILY 07/21/19 05/09/21 History ezetimibe 10 mg tablet 10 mg PO DAILY 07/21/19 05/09/21 History isosorbide mononitrate 60 mg 60 mg PO DAILY 07/21/19 05/09/21 History tablet,extended release 24 hr lisinopril 20 mg tablet 20 mg PO DAILY 07/21/19 05/09/21 History pravastatin 40 mg tablet 40 mg PO QPM tablet 11/25/19 05/09/21 History metoprolol succinate 100 mg 100 mg PO DAILY 04/26/20 05/09/21 History tablet,extended release 24 hr pantoprazole 40 mg PO QAM 07/23/20 05/09/21 History insulin degludec [Tresiba 55 unit SUB-Q QPM 05/09/21 05/09/21 History FlexTouch U-200] semaglutide [Ozempic] 1 mg SUBCUT WEEKLY 05/09/21 05/09/21 History Patient hx anesthesia problems: post op nausea/vomiting Family hx anesthesia problems: none Results Review: All pre-operative results and documents have been reviewed as part of the pre-operative evaluation. PMFSH Past Medical History Medical History Anxiety Arthritis Chronic anemia Chronic kidney disease, stage 3 Coronary artery disease Status post three-vessel CABG in 2002. She is a patient of Dr. Vadim Hernández. Essential hypertension Gastroesophageal reflux disease Osteopenia Type 2 diabetes mellitus Recent hemoglobin A1c of 6.9%. Vitamin D deficiency Surgical History Surgical History History of aortic valve replacement (~07/2018) Bioprosthetic tissue valve replacement done at [facility]. History of bilateral cataract extraction History of bladder suspension procedure History of bunionectomy History of section History of cholecystectomy History of coronary artery bypass graft x 3 (~04/2003) Performed at [facility]. History of hysterectomy History of mitral valve replacement (~07/2018) Bioprosthetic tissue valve replacement done at [facility]. Status post mitral valve annuloplasty (~04/2003) Family History Family History Father Carcinoma of colon Heart disease Mother Family history of lung cancer Sibling Heart disease Other Diabetes mellitus Family history of cardiovascular disease Family history of chronic obstructive pulmonary disease Family history of glaucoma Hypertension Social History Social History Social History: Surrogate decision maker: Vadim Vasquez, son. Code status: Full code. Smoking status: Never smoker Second hand tobacco smoke exposure: No Alcohol intake: never Substance use: never Substance use type: does not use Living arrangements: with family Additional living arrangements comments: The patient is and lives in her own home in [place]. Two adult sons. Additional occupation/education comments: Retired. Previously worked for an insurance agency. Gender identity (if verbalized by the patient): Female Spiritual car
[2021-05-26 08:30] LABS: Glucose Point of Care 95 mg/dl (65-105)
[2021-05-26] MEDS: GENTAMICIN 80MG/SOD CHL 50 ML 80 MG/50 ML BAG 100 MG IVPB (08:55)
[2021-05-26 09:37] VITALS: BP 117/71; PULSE 81; RESP 17; O2SAT 100
[2021-05-26 09:47] VITALS: BP 117/72; PULSE 77; RESP 22; O2SAT 100
[2021-05-26 09:57] VITALS: BP 138/81; PULSE 72; RESP 19; O2SAT 99
[2021-05-26 10:05] LABS: Glucose Point of Care 75 mg/dl (65-105)
== END 2021-05-26 10:06 | disposition home or self-care (01) ==
PROVIDERS: PCP Physician Assistant; Visit Provider Internal Medicine Gastroenterology
PROC: 0DJD8ZZ Inspection of Lower Intestinal Tract, Via Natural or Artificial Opening Endoscopic (ICD-10-PCS; CPT 45378; principal; 2021-05-26 09:15)
DX: Z12.11 Encounter for screening for malignant neoplasm of colon (principal); K57.30 Diverticulosis of large intestine without perforation or abscess without bleeding; Z80.0 Family history of malignant neoplasm of digestive organs; I12.9 Hypertensive chronic kidney disease with stage 1 through stage 4 chronic kidney disease, or unspecified chronic kidney disease; N18.30 Chronic kidney disease, stage 3 unspecified; E11.22 Type 2 diabetes mellitus with diabetic chronic kidney disease; I25.10 Atherosclerotic heart disease of native coronary artery without angina pectoris; E55.9 Vitamin D deficiency, unspecified; K21.9 Gastro-esophageal reflux disease without esophagitis; M85.80 Other specified disorders of bone density and structure, unspecified site; M19.90 Unspecified osteoarthritis, unspecified site; F41.9 Anxiety disorder, unspecified; Z95.4 Presence of other heart-valve replacement; Z95.1 Presence of aortocoronary bypass graft; Z90.49 Acquired absence of other specified parts of digestive tract; Z90.710 Acquired absence of both cervix and uterus
CPT/HCPCS: G0105; 82948; J0290; J1580; J2704; J7120

== ENCOUNTER 2021-07-26 12:23 | Outpatient (CLI) | payer MEDICARE, OTHER, SELFPAY ==
--- NOTE | ~2021-07-26 | XR_ITS ---
. EXAMINATION: XR lg joint inject/asp w image DATE: 07/26/2021 13:37 INDICATION: Right shoulder pain TECHNIQUE: A time-out was performed to verify the patient's name, date of , and procedure to b e performed. The procedure including the risks, benefits, and alternatives was discussed with the pat ient. Risks discussed included bleeding and infection. The patient understood the risks and agreed to proceed. The skin overlying the rotator cuff interval of the right glenohumeral joint was prepped a nd draped in usual sterile fashion. Anesthetic was administered with 1% lidocaine subcutaneously. A 22 G needle was advanced under fluoroscopic guidance into the joint. Injection of 1 mL of Omnipaque 240 confirmed intra-articular position of the needle. Subsequently, injectate consisting of 5 mL of a 3:2 mixture of 1% lidocaine: 40 mg/mL Depo-Medrol for a total dosage of 80 mg Depo-Medrol was inst illed. Washout of contrast was seen confirming intra-articular administration. The needle was removed and the entry site was cleaned and dressed. There were no immediate complications. Fluoroscopy expo sure time was 0.1 minutes. The total number of images was 2. FINDINGS: Real-time fluoroscopy demonstrates the needle in the right glenohumeral joint. Patient's pa in prior to procedure:5/10. Patient's pain following the procedure: 0/10. IMPRESSION: 1. Successful right glenohumeral joint injection of local anesthetic and steroid with decrease in the patient's presenting pain. Reviewed, dictated and finalized at location A. LY LAWYER IMPRESSION: 1. Successful right glenohumeral joint injection of local anesthetic and steroi d with decrease in the patient's presenting pain.
== END 2021-07-26 12:24 | disposition home or self-care (01) ==
LOC: ANHIMG 12:26
PROVIDERS: PCP Physician Assistant; Visit Provider Orthopaedic Surgery
DX: M25.511 Pain in right shoulder (principal)
CPT/HCPCS: 20610; 77002; J1030; Q9966

== ENCOUNTER → 2022-06-13 14:44 | Outpatient (CLI) | payer MEDICARE, OTHER, SELFPAY ==
--- NOTE | ~2022-06-13 | MM_ITS ---
EXAMINATION: MM screening alisha BI w sandie HISTORY: Screening mammogram TECHNIQUE: Craniocaudal and mediolateral oblique 3-D tomosynthesis images were obtained and synthetic 2-D images were generated. CAD analysis was submitted and interpreted. COMPARISON: 05/06/2021, 05/03/2020, 05/01/2019 bilateral screening mammogram examinations BREAST PARENCHYMAL COMPOSITION: The breasts are almost entirely fatty. FINDINGS: There is no evidence of suspicious mass, calcification, or architectural distortion to sugg est malignancy in either breast. There has been no suspicious interval change. IMPRESSION: 1. No mammographic evidence of malignancy. 2. Recommend routine screening mammography in one year. BI-RADS Category 1: Negative Reviewed, dictated and finalized at location A. SOLUTION MANAGER CONSULTANT
== END ==
PROVIDERS: PCP Physician Assistant; Visit Provider Nurse Practitioner
DX: Z12.31 Encounter for screening mammogram for malignant neoplasm of breast (principal)
CPT/HCPCS: 77063; 77067

== ENCOUNTER 2023-11-05 10:33 | Outpatient (CLI) | payer MEDICARE, SELFPAY ==
--- NOTE | ~2023-11-05 | MM_ITS ---
EXAMINATION: MM screening alisha BI w sandie HISTORY: Screening TECHNIQUE: Craniocaudal and mediolateral oblique 3-D tomosynthesis images were obtained and synthetic 2-D images were generated. CAD analysis was submitted and interpreted. COMPARISON: Comparison to multiple prior studies sequentially, with oldest reviewed study dated 03/09. BREAST PARENCHYMAL COMPOSITION: Not dense: There are scattered areas of fibroglandular density. FINDINGS: There is no evidence of suspicious mass, calcification, or architectural distortion to sugg est malignancy in either breast. There has been no suspicious interval change. IMPRESSION: 1. No mammographic evidence of malignancy. 2. Recommend routine screening mammography in one year. BI-RADS Category 1: Negative Reviewed, dictated and finalized at location A.
--- NOTE | ~2023-11-05 | DEXA_ITS ---
Bone Density Report Name: LAUREN BORDEN Age: 68 Sex: Female Ethnicity: White Date of : 1955 Indication: postmenopausal; screening for osteoporosis; height loss; prior fracture; hysterectomy; Referring Provider: ERICK ALAN Study: Bone densitometry was performed. Exam Date: November 05, 2023 Accession number: [id number] Bone Density: Region BMD T-score Z-score Classification AP Spine (L1-L4) 0.895 -1.4 0.7 Osteopenia Femoral Neck (Left) 0.737 -1.0 0.8 Normal Total Hip (Left) 0.907 -0.3 1.2 Normal Femoral Neck (Right) 0.699 -1.3 0.5 Osteopenia Total Hip (Right) 0.826 -0.9 0.6 Normal Total Hip Mean 0.867 -0.6 0.9 Normal World Health Organization criteria for BMD impression classify patients as: Normal (T-score at or above -1.0), Osteopenia (T-score between -1.0 and -2.5), or Osteoporosis (T-score at or below -2.5). 10-year Fracture Risk(1): Major Osteoporotic Fracture 15% Hip Fracture 1.8% Reported Risk Factors: [place] (), Neck BMD=0.699, BMI=29.4, previous fracture (1) FRAX(R) Version 3.08. Fracture probability calculated for an untreated patient. Fracture probability may be lower if the patient has received treatment. Previous Exams: Region Exam Age BMD T-score BMD Change BMD Change Date g/cm2 vs Baseline vs Previous AP Spine(L1-L4) 11/05/2023 68 0.895 -1.4 -0.091* -0.046* 05/03/2020 64 0.941 -1.0 -0.045* 0.038* 04/10/2018 62 0.903 -1.3 -0.083* -0.027* 03/04/2016 60 0.930 -1.1 -0.056* -0.037* 12/29/2011 56 0.967 -0.7 -0.019 0.015 11/16/2008 53 0.952 -0.9 -0.034* -0.034* 11/09/2006 51 0.986 -0.6 Total Hip(Left) 11/05/2023 68 0.907 -0.3 -0.126* -0.076* 05/03/2020 64 0.984 0.3 -0.050* 0.000 04/10/2018 62 0.983 0.3 -0.050* 0.044* 03/04/2016 60 0.939 0.0 -0.095* -0.137* 12/29/2011 56 1.076 1.1 0.042* 0.069* 11/16/2008 53 1.007 0.5 -0.027 -0.027 11/09/2006 51 1.034 0.8 Total Hip(Right) 11/05/2023 68 0.826 -0.9 -0.146* -0.047* 05/03/2020 64 0.873 -0.6 -0.099* -0.004 04/10/2018 62 0.877 -0.5 -0.095* -0.009 03/04/2016 60 0.887 -0.5 -0.086* -0.095* 12/29/2011 56 0.982 0.3 0.010 0.005 11/16/2008 53 0.977 0.3 0.004 0.004 11/09/2006 51 0.972 0.2
== END 2023-11-05 10:34 ==
PROVIDERS: PCP Physician Assistant; Visit Provider Obstetrics & Gynecology Gynecology
DX: Z12.31 Encounter for screening mammogram for malignant neoplasm of breast (principal); M85.89 Other specified disorders of bone density and structure, multiple sites; Z78.0 Asymptomatic menopausal state; Z13.820 Encounter for screening for osteoporosis
CPT/HCPCS: 77063; 77067; 77080

== ENCOUNTER 2024-02-10 01:56 | Inpatient (IN) | payer MEDICARE, SELFPAY ==
[2024-02-10] VITALS (15 sets, daily range): BP systolic 89–150; BP diastolic 55–71; PULSE 74–96; RESP 12–20; TEMP 36.4–37.2; O2SAT 95–100
--- NOTE | ~2024-02-10 | CT_ITS ---
EXAMINATION: CT abdomen pelvis w con DATE: 02/10/2024 08:48 INDICATION: Left abdominal pain. Blood in stool. TECHNIQUE: Computed tomography (CT) of the abdomen and pelvis was performed with 100 mL Omnipaque 350 intravenous contrast. Automated exposure control and iterative reconstruction technique were employe d. The dose-length product was 569.51 mGy-cm. COMPARISON: None. FINDINGS: The visualized portions of the lung bases demonstrate mild atelectasis. There are 12 mm and 8 mm nodules in left lower lobe. No pleural effusion. The heart size is normal. There are changes of aortic and mitral valve replacements. No pericardial effusion. There is moderate intrahepatic biliar y duct dilatation. The common duct is dilated to 21 mm. There are hypodense masses in the spleen anisa uring up to 19 mm, likely benign. The adrenal glands are normal. There is cortical thinning of the ki dneys. There are scattered diverticula in the colon. There is wall thickening of the descending colon , consistent with colitis. The appendix is not visualized. There are no dilated loops of bowel. There are no pathologically enlarged lymph nodes. There is a small volume of pelvic ascites. There is calc ified atherosclerosis of the aorta and many of the other arteries. There is no significant stenosis o f celiac axis, superior mesenteric artery, or inferior mesenteric artery. There is mild lumbar spondy losis. IMPRESSION: 1. Colitis involving descending colon. 2. Small volume of ascites. 3. Left lower lobe pulmonary nodules, which may be infection or malignancy. Noncontrast low-dose ches t CT is recommended in 3 months. 4. Intrahepatic and extrahepatic biliary duct dilatation status post cholecystectomy. Correlate with liver function tests to determine if this finding is clinically significant. Reviewed, dictated and finalized at location A. IMPRESSION: 1. Colitis involving descending colon. 2. Small volume of ascites. 3. Left lower lobe pulmonary nodules, which may be infection or malignancy. Non contrast low-dose chest CT is recommended in 3 months. 4. Intrahepatic and extrahepatic biliary duct dilatation status post cholecyste ctomy. Correlate with liver function tests to determine if this finding is clin ically significant.
--- NOTE | 2024-02-10 07:50 | ED.NAVMDI ---
HPI - Nausea/Vomiting/Diarrhea General Chief complaint: Nausea/Vomiting/Diarrhea Stated complaint: n/v/d, bloody stool Time Seen by Provider: 02/10/24 07:04 History of Present Illness HPI Narrative: patient is a 68-year-old female with a history of diabetes, hypertension, CKD, hyperlipidemia presenting with rectal bleeding. Patient states that on Sunday she developed nausea, vomiting, diarrhea. On Sunday she noticed a few blood spots on the toilet paper a small amount of blood in the toilet. Last night she had an episode of diarrhea and states there is a lot more blood in the entire bowl was red. States that she continues to have lower abdominal pain, especially on the left. No more nausea or vomiting. No dysuria or hematuria. No flank pain. No further complaints. Related Data Home Medications Medication Instructions Recorded Confirmed blood sugar diagnostic (OneTouch #10 ea 05/08/19 02/10/24 Ultra Blue Test Strip) pen needle, diabetic 32 gauge x #10 ea 05/08/19 02/10/24 (BD Ultra-Fine Tala Pen Needle) aspirin 81 mg tablet,delayed 81 mg PO DAILY 07/21/19 02/10/24 release (Adult Aspirin Regimen) ezetimibe 10 mg tablet 10 mg PO DAILY 07/21/19 02/10/24 isosorbide mononitrate 60 mg 60 mg PO DAILY 07/21/19 02/10/24 tablet,extended release 24 hr lisinopril 20 mg tablet 20 mg PO DAILY 07/21/19 02/10/24 pravastatin 40 mg tablet 40 mg PO QPM 11/25/19 02/10/24 metoprolol succinate 100 mg 100 mg PO DAILY 04/26/20 02/10/24 tablet,extended release 24 hr pantoprazole 40 mg tablet,delayed 40 mg PO QAM 07/23/20 02/10/24 release cholecalciferol (vitamin D3) 25 25 mcg PO DAILY 11/30/21 02/10/24 mcg (1,000 unit) capsule insulin degludec 200 unit/mL (3 30 unit subcut HS 02/10/24 02/10/24 mL) subcutaneous pen (Tresiba FlexTouch U-200 insulin) Allergies Allergy/AdvReac Type Severity Reaction Status Date / Time No Known Allergies Allergy Verified 02/10/24 02:04 Review of Systems Review of Systems: All systems reviewed & are unremarkable except as noted in HPI and below PMFSH Past Medical History Medical History (Updated 02/12/24 @ 15:20 by Rebecca Odell MD) Anxiety Arthritis Body mass index (BMI) 23 or greater (10/15/17) Body mass index (BMI) 35 or more (06/04/18) CAD in [place] artery Cervical radiculopathy Chronic anemia Chronic kidney disease, stage III (moderate) CKD stage 3 due to type 2 diabetes mellitus Closed trimalleolar fracture of right ankle Coronary artery disease Coronary artery disease Status post three-vessel CABG in 2002. She is a patient of Dr. Vadim Hernández. Dyslipidemia Essential hypertension Excessive cerumen in both ear canals GERD without esophagitis Hypercalcemia Iron deficiency anemia Osteopenia Type 2 diabetes mellitus Recent hemoglobin A1c of 6.9%. Type 2 diabetes mellitus with hyperglycemia Vitamin D deficiency Surgical History Surgical History History of aortic valve replacement (~07/2018) Bioprosthetic tissue valve replacement done at [facility]. History of bilateral cataract extraction History of bladder suspension procedure History of bunionectomy History of section History of cholecystectomy History of coronary artery bypass graft x 3 (~04/2003) Performed at [facility]. History of hysterectomy History of mitral valve replacement (~07/2018) Bioprosthetic tissue valve replacement done at [facility]. Status post aortic valve and mitral valve replacement Status post mitral valve annuloplasty (~04/2003) Family History Family History Father Carcinoma of colon Heart disease Mother Family history of lung cancer Sibling Heart disease Other Diabetes mellitus Family history of cardiovascular disease Family history of chronic obstructive pulmonary disease Family history of glauco
[2024-02-10 08:16] LABS: Add Urine Microscopic? YES; Appearance Urine Clear (Clear); Bacteria Urine None Seen /hpf; Bilirubin Urine Negative (Negative); Blood Urine Negative (Negative); Budding Yeast Urine Present /hpf; Color Urine Yellow (Yellow); Glucose Urine UA 3+ mg/dL (Negative); Ketones Urine 1+ mg/dL (Negative); Leukocyte Esterase Ur Negative LEU/UL (Negative); Nitrate Urine Negative (Negative); Non Pathogenic Casts 0-2; Protein Urine Trace mg/dL (Negative); Specific Grav Ur 1.027 (1.001-1.035); Squamous Epithelial Cell Urine None Seen /hpf (Few); Urobilinogen Urine 0.2 mg/dL (<2.0); pH Urine 5.5 (5.0-9.0)
[2024-02-10 08:18] LABS: Alanine Aminotransferase 14 U/L (6-35); Albumin Level 4.1 g/dL (3.5-5.1); Alkaline Phosphatase 87 U/L (38-126); Anion Gap 12 mmol/L (4-12); Aspartate Amino Transferase 23 U/L (14-36); Bilirubin,Total 0.8 mg/dL (0.2-1.3); Blood Urea Nitrogen 33 mg/dL (7-17); Calcium 9.7 mg/dL (8.4-10.2); Carbon Dioxide 26 mmol/L (22-30); Chloride 96 mmol/L (98-107); Estimated CRCL calculation 28 ml/min; Estimated Glomerular Filt Rate 34; Glucose 113 mg/dL (65-110); Lipase 149 U/L (23-300); Potassium 4.4 mmol/L (3.4-5.0); Sodium 134 mmol/L (137-145)
[2024-02-10 08:22] LABS: Basophils Absolute Auto 0.1 K/mm3 (0.0-0.1); Basophils Percent Auto 0.3 % (0.2-1.2); Eosinophils Absolute Auto 0.1 K/mm3 (0-0.3); Eosinophils Percent Auto 0.2 % (0-4.4); Hematocrit 43.2 % (37.0-47.0); Immature Granulocyte Absolute 0.17 K/mm3 (0.00-0.031); Immature Granulocyte Percent A 0.8 % (0-0.5); Lymphocytes Absolute Auto 2.84 K/mm3 (0.9-3.2); Lymphocytes Percent Auto 13.8 % (18.3-44.2); Mean Corpuscular HGB Conc 32.4 g/dl (32-36); Mean Corpuscular Volume 86.4 fl (80-100); Monocytes Absolute Auto 1.2 K/mm3 (0.1-0.6); Monocytes Percent Auto 5.8 % (2.6-8.5); Neutrophils Absolute Auto 16.3 K/mm3 (1.3-6.7); Neutrophils Percent Auto 79.1 % (45.5-73.1); Platelet Count Result 213 k/mm3 (150-375); Red Cell Distribution Width 13.7 % (11.5-14.5); White Blood Count 20.6 K/mm3 (4.5-10.0)
[2024-02-10 08:47] LABS: INR 1.1; Prothrombin Time 14.3 Seconds (11.1-14.7)
[2024-02-10 08:48] LABS: Partial Thromboplastin Time 32.5 Seconds (22.3-36.8)
[2024-02-10 11:03] LABS: Lactic Acid Reflex 1.8 mmol/L (0.7-2.0)
[2024-02-10] MEDS: SODIUM CHLORIDE 0.9% IV 1,000 ML 999 ML IV CONT ×2 (11:06→11:59)
[2024-02-10] MEDS: cefTRIAXone 2 GM/NS 100 ML 2 GM/100 ML BAG IVPB (11:08)
[2024-02-10] MEDS: metroNIDAZOLE 500 MG/ISO 100ML 500 MG/100 ML BAG 100 MG IVPB (11:58)
--- NOTE | 2024-02-10 13:46 | PM.IMHP ---
H&P: HPI History of Present Illness Date/Time: 02/10/24 13:46 Chief Complaint: nausea/vomiting / diarrhea/bloody stools Narrative: This is a 68-year-old female with a significant past medical history of type 2diabetes, hypertension, chronic kidney disease stage III, hyperlipidemia, anxiety, iron deficiency anemia, coronary artery disease, GERD, aortic valve replacement, mitral valve replacement, CABG x3 vessel, hysterectomy who presents to the hospital with nausea, vomiting, diarrhea, bloody stools. patient provides the following history of presenting illness. She states this past Sunday she started in with nausea, vomiting, abdominal pain. She reports that she was around someone with COVID and did a home COVID test which was negative. Patient states that overnight she had an episode of diarrhea that was bloody. she does have history of internal hemorrhoids and takes Plavix and aspirin. She does have history of constipation and is on a stool softener. She also had concerns because her father was diagnosed with colon cancer which was diagnosed after the age of 70 and she is currently 68. Workup in the hospital included an abdomen pelvis CT which shows colitis involving descending colon, small volume of ascites, left lower lobe pulmonary nodules with recommendations for a noncontrast low-dose chest CT in 3 months, intrahepatic and extrahepatic biliary duct dilatation. Initial labs showed a white blood cell count of 20.6, INR 1.1, sodium 134, chloride 96, creatinine 1.5, EGFR 34, lactic acid 1.8, liver enzymes are normal, lipase 149. UA was obtained and showed 3+ urine glucose, 1+ urine ketones, 3-5 urine RBC, 6-10 urine WBC, urine yeast present. Blood and urine cultures were obtained and are pending. Patient was given 2L of normal saline, Rocephin, and Flagyl while in the ED. Review of Systems Review of Systems: All systems reviewed & are unremarkable except as noted in HPI and below Constitutional: Constitutional: Reports as per HPI and Reports no additional constitutional complaints Eyes: Eyes: Reports as per HPI and Reports no additional eye complaints ENT: Reports system reviewed and no additional complaints, except as documented and Reports as per HPI Cardiovascular: Cardiovascular: Reports as per HPI and Reports no additional cardiovascular complaints Respiratory: Respiratory: Reports as per HPI and Reports no additional respiratory complaints Gastrointestinal: Gastrointestinal: Reports as per HPI and Reports no additional gastrointestinal complaints Genitourinary: Genitourinary: Reports no additional female genitourinary complaints and Reports as per HPI Musculoskeletal: Musculoskeletal: Reports no additional musculoskeletal complaints and Reports as per HPI Integumentary/Breasts: Skin/Breast: Reports system reviewed and no additional complaints, except as docu and Reports as per HPI Neurologic: Reports system reviewed and no additional complaints, except as documented and Reports as per HPI Psychiatric: Psychiatric: Reports no additional psychiatric complaints and Reports as per HPI [facility] Past Medical History Medical History (Updated 02/10/24 @ 14:16 by Jessica Bahena, JILLIAN) Anxiety Arthritis Body mass index (BMI) 23 or greater (10/15/17) Body mass index (BMI) 35 or more (06/04/18) CAD in [place] artery Cervical radiculopathy Chronic anemia Chronic kidney disease, stage III (moderate) CKD stage 3 due to type 2 diabetes mellitus Closed trimalleolar fracture of right ankle Coronary artery disease Coronary artery disease Status post three-vessel CABG in 2002. She is a patient of Dr. Vadim Hernández. Dyslipidemia Essential hypertension Excessive cerumen in both ear canals GERD without esophagitis Hypercalcemia Iron deficiency anemia Osteopenia Type 2 diabetes mellitus Recent hemoglobin A1c of 6.9%. Type 2 diabetes mellitus with hyperglycemia Vitamin D deficiency Surgical History Surgical History (Reviewe
--- NOTE | 2024-02-10 14:18 | ADMGEN ---
This patient, Bety Vasquez, was admitted to 3 [facility] Surg Room 300-01. Patient/family oriented to hospital policies and general routines including ID bracelet, bed and alarms, visiting hours, pain management, procedures, bathroom and other care routines, personal items, smoking policy, room service/diet, and visiting hours. Information on how to activate the Rapid Response Team has been discussed. Patient/Family are encouraged to report perceived risks to care and to ask questions if they do not understand what they are told or what they should do.
[2024-02-10 17:08] LABS: Glucose Point of Care 89 mg/dl (65-105)
[2024-02-10 20:24] LABS: Glucose Point of Care 199 mg/dl (65-105)
[2024-02-10] MEDS: CHOLECALCIFEROL 1,000 UNITS TABLET 1000 UNITS PO (21:02)
[2024-02-10] MEDS: lisinopriL 20 MG TABLET PO (21:03)
[2024-02-10] MEDS: PRAVASTATIN SODIUM 20 MG TABLET 40 MG PO (21:03)
[2024-02-10] MEDS: EZETIMIBE 10 MG TABLET PO (21:03)
[2024-02-10] MEDS: PANTOPRAZOLE 40 MG TABLET PO (21:03)
[2024-02-10] MEDS: METOPROLOL SUCCINATE EXT REL 100 MG TABCR PO (21:03)
[2024-02-10 21:19] LABS: Influenza A QL RT-PCR Negative (Negative); Influenza B QL RT-PCR Negative (Negative); RSV RNA, RT-PCR Negative (Negative); SARS-CoV-2 RNA PCR Negative (Negative)
[2024-02-10] MEDS: HYDROcodone/acetaminophen (*CRX) 5-325 MG TABLET 1 TAB PO (21:45)
[2024-02-11] VITALS: BP 150/67; PULSE 79; RESP 20; TEMP 36.6; O2SAT 97
[2024-02-11 06:00] VITALS: BP 141/64; PULSE 70; RESP 18; TEMP 36.4; O2SAT 98
[2024-02-11 07:37] VITALS: BP 127/66; PULSE 70; O2SAT 98
[2024-02-11] MEDS: METOPROLOL SUCCINATE EXT REL 100 MG TABCR PO (07:37)
[2024-02-11] MEDS: EZETIMIBE 10 MG TABLET PO (07:38)
[2024-02-11] MEDS: ISOSORBIDE MONONITRATE 60 MG TAB.ER.24H PO (07:38)
[2024-02-11] MEDS: PANTOPRAZOLE 40 MG TABLET PO (07:38)
[2024-02-11] MEDS: CHOLECALCIFEROL 1,000 UNITS TABLET 1000 UNITS PO (07:38)
[2024-02-11] MEDS: lisinopriL 20 MG TABLET PO (07:38)
--- NOTE | 2024-02-11 07:41 | P.PNIM_ITS ---
Progress Note: A&P Assessment and Plan (1) Sepsis: Code(s): A41.9 - Sepsis, unspecified organism Status: Acute Assessment and Plan: 02/10/24: * initially meeting sepsis criteria with a heart rate of 97, white blood cell count 20.6, hypotension, LISSET, and colitis on CT scan * blood and urine cultures were obtained and are pending * patient was given 2 L of normal saline while in the ED * LR 100 ml per hour continuous * patient was started on Rocephin and Flagyl * lactic acid was normal at 1.8 * creatinine 1.5--> 1.2 (2) Colitis: Code(s): K52.9 - Noninfective gastroenteritis and colitis, unspecified Status: Acute Assessment and Plan: 02/10/24: * CT of the abdomen and pelvis showed wall thickening of the descending colon consistent with colitis * white blood cell count 20.6, lactic acid was normal at 1.8 * patient was given 2 L of normal saline, Flagyl, Rocephin while in the ED * Blood cultures pending * Continue Flagyl, Rocephin, and IV fluids * Stool studies ordered for viral vs inflammatory etiology * Will refer for colonoscopy as an outpatient * Can consider GI consult if she does not improve with conservative therapies * CRP 4.0 (3) GI bleed: Code(s): K92.2 - Gastrointestinal hemorrhage, unspecified Status: Acute Assessment and Plan: 02/10/24: * reports 1 episode of bloody diarrhea yesterday * hemoglobin 14.0 today * last colonoscopy reviewed from 05/26/21 which shown diverticulosis without perforation or abscess without bleeding (4) Essential hypertension: Code(s): I10 - Essential (primary) hypertension Status: Chronic Assessment and Plan: 02/10/24: * blood pressure ranging 110/62 118/68 * initial presentation in the ED blood pressure was ranging 89/62 to 97/55 which was likely due to dehydration * patient takes lisinopril, metoprolol, Imdur (5) Type 2 diabetes mellitus: Code(s): E11.9 - Type 2 diabetes mellitus without complications Status: Chronic Assessment and Plan: 02/10/24: * Blood sugar 113 * Hgb A1C 6.5 on 01/30/2024 * Accu checks AC/HS * low-dose SSI ordered * hypoglycemic protocol in place * Diabetic diet ordered * Farxiga, Tresiba, Ozempic on hold (6) Pulmonary nodules: Code(s): R91.8 - Other nonspecific abnormal finding of lung field Status: Acute Assessment and Plan: 02/10/24: * CT of the abdomen and pelvis shown a 12 mm and an 8 mm nodule in left lower lobe which may be infection or malignancy and recommended noncontrast low-dose chest CT in 3 months * will need further follow-up on discharge Plan DVT prophylaxis: scd Glycemic control: ac/hs, SSI moderate dosing TID, hypoglycemic protocol Code Status: Full code Disposition: 68-year-old female who presents with complaints nausea, vomiting, abdominal pain, and rectal bleeding. CT imaging shows descending colitis. Patient was admitted for IV fluids, IV antibiotics, and monitoring of h emoglobin. Medication reconciliation obtained via the following: Nurse completed on admission The file time of this note does not necessarily represent the time the patient was seen. Subjective Date/time seen: 02/11/24 07:41 Interval history: This is a 68-year-old female with a significant past medical history of type 2diabetes, hypertension, chronic kidney disease stage III, hyperlipidemia, anxiety,
--- NOTE | 2024-02-11 07:41 | PM.IMPN ---
Progress Note: A&P Assessment and Plan (1) Sepsis: Code(s): A41.9 - Sepsis, unspecified organism Status: Acute Assessment and Plan: 02/10/24: initially meeting sepsis criteria with a heart rate of 97, white blood cell count 20.6, hypotension, LISSET, and colitis on CT scan blood and urine cultures were obtained and are pending patient was given 2 L of normal saline while in the ED LR 100 ml per hour continuous patient was started on Rocephin and Flagyl lactic acid was normal at 1.8 creatinine 1.5--> 1.2 (2) Colitis: Code(s): K52.9 - Noninfective gastroenteritis and colitis, unspecified Status: Acute Assessment and Plan: 02/10/24: CT of the abdomen and pelvis showed wall thickening of the descending colon consistent with colitis white blood cell count 20.6, lactic acid was normal at 1.8 patient was given 2 L of normal saline, Flagyl, Rocephin while in the ED Blood cultures pending Continue Flagyl, Rocephin, and IV fluids Stool studies ordered for viral vs inflammatory etiology Will refer for colonoscopy as an outpatient Can consider GI consult if she does not improve with conservative therapies CRP 4.0 (3) GI bleed: Code(s): K92.2 - Gastrointestinal hemorrhage, unspecified Status: Acute Assessment and Plan: 02/10/24: reports 1 episode of bloody diarrhea yesterday hemoglobin 14.0 today last colonoscopy reviewed from 05/26/21 which shown diverticulosis without perforation or abscess without bleeding (4) Essential hypertension: Code(s): I10 - Essential (primary) hypertension Status: Chronic Assessment and Plan: 02/10/24: blood pressure ranging 110/62 118/68 initial presentation in the ED blood pressure was ranging 89/62 to 97/55 which was likely due to dehydration patient takes lisinopril, metoprolol, Imdur (5) Type 2 diabetes mellitus: Code(s): E11.9 - Type 2 diabetes mellitus without complications Status: Chronic Assessment and Plan: 02/10/24: Blood sugar 113 Hgb A1C 6.5 on 01/30/2024 Accu checks AC/HS low-dose SSI ordered hypoglycemic protocol in place Diabetic diet ordered Farxiga, Tresiba, Ozempic on hold (6) Pulmonary nodules: Code(s): R91.8 - Other nonspecific abnormal finding of lung field Status: Acute Assessment and Plan: 02/10/24: CT of the abdomen and pelvis shown a 12 mm and an 8 mm nodule in left lower lobe which may be infection or malignancy and recommended noncontrast low-dose chest CT in 3 months will need further follow-up on discharge Plan DVT prophylaxis: scd Glycemic control: ac/hs, SSI moderate dosing TID, hypoglycemic protocol Code Status: Full code Disposition: 68-year-old female who presents with complaints nausea, vomiting, abdominal pain, and rectal bleeding. CT imaging shows descending colitis. Patient was admitted for IV fluids, IV antibiotics, and monitoring of hemoglobin. Medication reconciliation obtained via the following: Nurse completed on admission The file time of this note does not necessarily represent the time the patient was seen. Subjective Date/time seen: 02/11/24 07:41 Interval history: This is a 68-year-old female with a significant past medical history of type 2diabetes, hypertension, chronic kidney disease stage III, hyperlipidemia, anxiety, iron deficiency anemia, coronary artery disease, GERD, aortic valve replacement, mitral valve replacement, CABG x3 vessel, hysterectomy who presents to the hospital with nausea, vomiting, diarrhea, bloody stools. 02/10: Very pleasant lady who is here with rectal bleeding. She states she feels better than when she 1st presented. Normally she has trouble with constipation but has recently been experiencing nausea, vomiting, diarrhea. She has not yet have
[2024-02-11 08:13] LABS: Glucose Point of Care 133 mg/dl (65-105)
[2024-02-11 08:54] LABS: Basophils Absolute Auto 0.1 K/mm3 (0.0-0.1); Basophils Percent Auto 0.7 % (0.2-1.2); Eosinophils Absolute Auto 0.3 K/mm3 (0-0.3); Eosinophils Percent Auto 2.1 % (0-4.4); Hematocrit 40.6 % (37.0-47.0); Hemoglobin 12.7 g/dL (12.0-15.0); Immature Granulocyte Absolute 0.07 K/mm3 (0.00-0.031); Immature Granulocyte Percent A 0.5 % (0-0.5); Lymphocytes Absolute Auto 3.19 K/mm3 (0.9-3.2); Lymphocytes Percent Auto 23.8 % (18.3-44.2); Mean Corpuscular HGB Conc 31.3 g/dl (32-36); Mean Corpuscular Hemoglobin 27.9 pg (26-34); Mean Platelet Volume 11.9 fl (7.4-10.4); Monocytes Absolute Auto 0.8 K/mm3 (0.1-0.6); Monocytes Percent Auto 5.7 % (2.6-8.5); Neutrophils Percent Auto 67.2 % (45.5-73.1); Platelet Count Result 206 k/mm3 (150-375); Red Blood Count 4.56 M/mm3 (4.2-5.4); Red Cell Distribution Width 13.7 % (11.5-14.5); White Blood Count 13.4 K/mm3 (4.5-10.0)
[2024-02-11] MEDS: metroNIDAZOLE 500 MG/ISO 100ML 500 MG/100 ML BAG 100 MG IVPB ×3 (08:54→22:51)
[2024-02-11] MEDS: LACTATED RINGERS 1,000 ML 100 ML IV CONT ×2 (08:54→21:40)
[2024-02-11 09:04] LABS: Alanine Aminotransferase 14 U/L (6-35); Albumin Level 3.9 g/dL (3.5-5.1); Alkaline Phosphatase 80 U/L (38-126); Anion Gap 10 mmol/L (4-12); Aspartate Amino Transferase 24 U/L (14-36); Bilirubin,Total 0.5 mg/dL (0.2-1.3); Blood Urea Nitrogen 22 mg/dL (7-17); Calcium 8.9 mg/dL (8.4-10.2); Carbon Dioxide 27 mmol/L (22-30); Chloride 99 mmol/L (98-107); Estimated CRCL calculation 35 ml/min; Estimated Glomerular Filt Rate 44; Glucose 106 mg/dL (65-110); Potassium 3.6 mmol/L (3.4-5.0); Sodium 136 mmol/L (137-145)
[2024-02-11 09:47] VITALS: O2SAT 94
[2024-02-11 10:37] VITALS: BMI 29.8
[2024-02-11 12:29] LABS: Glucose Point of Care 238 mg/dl (65-105)
[2024-02-11] MEDS: INSULIN ASPART (*BKC) 100 UNITS/ML SUB-Q (12:39)
[2024-02-11 13:51] VITALS: BP 98/60; PULSE 78; RESP 16; TEMP 36.3; O2SAT 98
[2024-02-11] MEDS: PRAVASTATIN SODIUM 20 MG TABLET 40 MG PO (16:37)
[2024-02-11 17:22] LABS: Glucose Point of Care 132 mg/dl (65-105)
[2024-02-11 20:45] VITALS: BP 104/41; PULSE 79; RESP 18; TEMP 37.3; O2SAT 97
[2024-02-11] MEDS: ACETAMINOPHEN 325 MG TABLET 650 MG PO (21:40)
[2024-02-11 22:00] LABS: Glucose Point of Care 172 mg/dl (65-105)
[2024-02-11] MEDS: MELATONIN 5 MG TABLET PO (22:50)
[2024-02-12 05:05] VITALS: BP 143/60; PULSE 74; RESP 18; TEMP 36.4; O2SAT 97
[2024-02-12] MEDS: metroNIDAZOLE 500 MG/ISO 100ML 500 MG/100 ML BAG 100 MG IVPB (06:47)
[2024-02-12 07:16] LABS: Basophils Absolute Auto 0.1 K/mm3 (0.0-0.1); Basophils Percent Auto 0.6 % (0.2-1.2); Eosinophils Absolute Auto 0.3 K/mm3 (0-0.3); Eosinophils Percent Auto 3.6 % (0-4.4); Hemoglobin 11.3 g/dL (12.0-15.0); Immature Granulocyte Absolute 0.04 K/mm3 (0.00-0.031); Immature Granulocyte Percent A 0.5 % (0-0.5); Lymphocytes Absolute Auto 2.08 K/mm3 (0.9-3.2); Lymphocytes Percent Auto 24.3 % (18.3-44.2); Mean Corpuscular HGB Conc 32.3 g/dl (32-36); Mean Corpuscular Hemoglobin 28.4 pg (26-34); Mean Corpuscular Volume 87.9 fl (80-100); Mean Platelet Volume 12.2 fl (7.4-10.4); Monocytes Absolute Auto 0.5 K/mm3 (0.1-0.6); Monocytes Percent Auto 5.7 % (2.6-8.5); Neutrophils Absolute Auto 5.6 K/mm3 (1.3-6.7); Neutrophils Percent Auto 65.3 % (45.5-73.1); Platelet Count Result 134 k/mm3 (150-375); Red Blood Count 3.98 M/mm3 (4.2-5.4); Red Cell Distribution Width 13.4 % (11.5-14.5); White Blood Count 8.6 K/mm3 (4.5-10.0)
--- NOTE | 2024-02-12 07:21 | P.PNIM_ITS ---
Progress Note: A&P Assessment and Plan (1) Sepsis: Code(s): A41.9 - Sepsis, unspecified organism Status: Acute Assessment and Plan: * initially meeting sepsis criteria with a heart rate of 97, white blood cell count 20.6, hypotension, LISSET, and colitis on CT scan * blood cultures: NGTD * urine cultures negative * stool culture: pending * patient was given 2 L of normal saline while in the ED * LR 100 ml per hour continuous * patient was started on Rocephin and Flagyl * lactic acid was normal at 1.8 * creatinine 1.5--> 1.2 (2) Colitis: Code(s): K52.9 - Noninfective gastroenteritis and colitis, unspecified Status: Acute Assessment and Plan: CT of the abdomen and pelvis showed wall thickening of the descending colon consistent with colitis. White blood cell count 20.6, lactic acid was normal at 1.8 on admission. Patient was given 2 L of normal saline, Flagyl, Rocephin while in the ED. * WBC 8.6 on am labs * Blood cultures pending * Continue Flagyl, Rocephin, and IV fluids * Stool studies ordered for viral vs inflammatory etiology: pending * Will refer for colonoscopy as an outpatient * Can consider GI consult if she does not improve with conservative therapies * CRP 4.0 (3) GI bleed: Code(s): K92.2 - Gastrointestinal hemorrhage, unspecified Status: Acute Assessment and Plan: Reports 1 episode of bloody diarrhea on 02/09. * hemoglobin 11.3 today * last colonoscopy reviewed from 05/26/21 which shown diverticulosis without perforation or abscess without bleeding (4) Essential hypertension: Code(s): I10 - Essential (primary) hypertension Status: Chronic Assessment and Plan: Chronic, initial presentation in the ED blood pressure was ranging 89/62 to 97/55 which was likely due to dehydration. She has received IV fluids and p ressures have been stable. * Continue lisinopril, metoprolol, and Imdur * Monitor (5) Type 2 diabetes mellitus: Code(s): E11.9 - Type 2 diabetes mellitus without complications Status: Chronic Assessment and Plan: * Hgb A1C 6.5 on 01/30/2024 * Accu checks AC/HS * low-dose SSI ordered * hypoglycemic protocol in place * Diabetic diet ordered * Cassie Chambers Ozempic on hold (6) Pulmonary nodules: Code(s): R91.8 - Other nonspecific abnormal finding of lung field Status: Acute Assessment and Plan: * CT of the abdomen and pelvis shown a 12 mm and an 8 mm nodule in left lower lobe which may be infection or malignancy and recommended noncontrast low-dose chest CT in 3 months * will need further follow-up on discharge Plan DVT prophylaxis: scd Glycemic control: ac/hs, SSI moderate dosing TID, hypoglycemic protocol Code Status: Full code Disposition: 68-year-old female who presents with complaints nausea, vomiting, abdominal pain, and rectal bleeding. CT imaging shows descending colitis. Patient was admitted for IV fluids, IV antibiotics, and monitoring of hemoglobin. Medication reconciliation obtained via the following: Nurse completed on admission The file time of this note does not necessarily represent the time the patient was seen. Subjective Date/time seen: 02/12/24 07:21 Interval history: This is a 68-year-old female with a significant past medical history of type 2diabetes, hypertension, chronic kidney disease stage III, hyperlipidemia, anxiety,
--- NOTE | 2024-02-12 07:21 | PM.IMPN ---
Progress Note: A&P Assessment and Plan (1) Sepsis: Code(s): A41.9 - Sepsis, unspecified organism Status: Acute Assessment and Plan: initially meeting sepsis criteria with a heart rate of 97, white blood cell count 20.6, hypotension, LISSET, and colitis on CT scan blood cultures: NGTD urine cultures negative stool culture: pending patient was given 2 L of normal saline while in the ED LR 100 ml per hour continuous patient was started on Rocephin and Flagyl lactic acid was normal at 1.8 creatinine 1.5--> 1.2 (2) Colitis: Code(s): K52.9 - Noninfective gastroenteritis and colitis, unspecified Status: Acute Assessment and Plan: CT of the abdomen and pelvis showed wall thickening of the descending colon consistent with colitis. White blood cell count 20.6, lactic acid was normal at 1.8 on admission. Patient was given 2 L of normal saline, Flagyl, Rocephin while in the ED. WBC 8.6 on am labs Blood cultures pending Continue Flagyl, Rocephin, and IV fluids Stool studies ordered for viral vs inflammatory etiology: pending Will refer for colonoscopy as an outpatient Can consider GI consult if she does not improve with conservative therapies CRP 4.0 (3) GI bleed: Code(s): K92.2 - Gastrointestinal hemorrhage, unspecified Status: Acute Assessment and Plan: Reports 1 episode of bloody diarrhea on 02/09. hemoglobin 11.3 today last colonoscopy reviewed from 05/26/21 which shown diverticulosis without perforation or abscess without bleeding (4) Essential hypertension: Code(s): I10 - Essential (primary) hypertension Status: Chronic Assessment and Plan: Chronic, initial presentation in the ED blood pressure was ranging 89/62 to 97/55 which was likely due to dehydration. She has received IV fluids and pressures have been stable. Continue lisinopril, metoprolol, and Imdur Monitor (5) Type 2 diabetes mellitus: Code(s): E11.9 - Type 2 diabetes mellitus without complications Status: Chronic Assessment and Plan: Hgb A1C 6.5 on 01/30/2024 Accu checks AC/HS low-dose SSI ordered hypoglycemic protocol in place Diabetic diet ordered Farxiga, Tresiba, Ozempic on hold (6) Pulmonary nodules: Code(s): R91.8 - Other nonspecific abnormal finding of lung field Status: Acute Assessment and Plan: CT of the abdomen and pelvis shown a 12 mm and an 8 mm nodule in left lower lobe which may be infection or malignancy and recommended noncontrast low-dose chest CT in 3 months will need further follow-up on discharge Plan DVT prophylaxis: scd Glycemic control: ac/hs, SSI moderate dosing TID, hypoglycemic protocol Code Status: Full code Disposition: 68-year-old female who presents with complaints nausea, vomiting, abdominal pain, and rectal bleeding. CT imaging shows descending colitis. Patient was admitted for IV fluids, IV antibiotics, and monitoring of hemoglobin. Medication reconciliation obtained via the following: Nurse completed on admission The file time of this note does not necessarily represent the time the patient was seen. Subjective Date/time seen: 02/12/24 07:21 Interval history: This is a 68-year-old female with a significant past medical history of type 2diabetes, hypertension, chronic kidney disease stage III, hyperlipidemia, anxiety, iron deficiency anemia, coronary artery disease, GERD, aortic valve replacement, mitral valve replacement, CABG x3 vessel, hysterectomy who presents to the hospital with nausea, vomiting, diarrhea, bloody stools. 02/10: Very pleasant lady who is here with rectal bleeding. She states she feels better than when she 1st presented. Normally she has trouble with constipation but has recently been experiencing nausea, vomiting, diarrhea. She has
[2024-02-12 07:42] LABS: Alanine Aminotransferase 11 U/L (6-35); Albumin Level 3.2 g/dL (3.5-5.1); Alkaline Phosphatase 65 U/L (38-126); Anion Gap 8 mmol/L (4-12); Aspartate Amino Transferase 20 U/L (14-36); Bilirubin,Total 0.3 mg/dL (0.2-1.3); Blood Urea Nitrogen 17 mg/dL (7-17); Calcium 8.5 mg/dL (8.4-10.2); Carbon Dioxide 27 mmol/L (22-30); Chloride 103 mmol/L (98-107); Estimated CRCL calculation 38 ml/min; Estimated Glomerular Filt Rate 49; Glucose 117 mg/dL (65-110); Magnesium 1.9 mg/dL (1.6-2.3); Sodium 138 mmol/L (137-145)
[2024-02-12] MEDS: PANTOPRAZOLE 40 MG TABLET PO (07:49)
[2024-02-12] MEDS: METOPROLOL SUCCINATE EXT REL 100 MG TABCR PO (07:50)
[2024-02-12] MEDS: ISOSORBIDE MONONITRATE 60 MG TAB.ER.24H PO (07:50)
[2024-02-12] MEDS: EZETIMIBE 10 MG TABLET PO (07:50)
[2024-02-12] MEDS: lisinopriL 20 MG TABLET PO (07:50)
[2024-02-12] MEDS: CHOLECALCIFEROL 1,000 UNITS TABLET 1000 UNITS PO (07:50)
[2024-02-12] MEDS: LACTATED RINGERS 1,000 ML 100 ML IV CONT (07:53)
[2024-02-12 08:28] LABS: Glucose Point of Care 120 mg/dl (65-105)
[2024-02-12 11:53] LABS: Glucose Point of Care 145 mg/dl (65-105)
--- NOTE | 2024-02-12 13:26 | PM.DS ---
DS: Admitting Diagnosis Discharge Date 02/12/2024 Admitting Diagnosis Sepsis colitis GI bleed hypertension type 2 dm pulmonary nodules DS: Discharge Diagnosis Discharge Diagnosis (1) Sepsis: Code(s): A41.9 - Sepsis, unspecified organism Status: Acute (2) Colitis: Code(s): K52.9 - Noninfective gastroenteritis and colitis, unspecified Status: Acute (3) GI bleed: Code(s): K92.2 - Gastrointestinal hemorrhage, unspecified Status: Acute (4) Essential hypertension: Code(s): I10 - Essential (primary) hypertension Status: Chronic (5) Type 2 diabetes mellitus: Code(s): E11.9 - Type 2 diabetes mellitus without complications Status: Chronic (6) Pulmonary nodules: Code(s): R91.8 - Other nonspecific abnormal finding of lung field Status: Acute DS: Summary Hospital Course Reason for hospitalization: Sepsis colitis GI bleed hypertension type 2 dm pulmonary nodules Hospital Course: This is a 68-year-old female with a significant past medical history of type 2diabetes, hypertension, chronic kidney disease stage III, hyperlipidemia, anxiety, iron deficiency anemia, coronary artery disease, GERD, aortic valve replacement, mitral valve replacement, CABG x3 vessel, hysterectomy who presents to the hospital with nausea, vomiting, diarrhea, bloody stools. Patient was meeting sepsis requirements on admission with tachycardia, leukocytosis, hypotension, LISSET and colitis on CT. CT of the abdomen and pelvis showed wall thickening of the descending colon consistent with colitis. White blood cell count 20.6, lactic acid was normal at 1.8 on admission. Patient was given 2 L of normal saline and started on Flagyl and Rocephin while in the ED. She reported one episode of bloody stool, but denied throughout admission and her H/H remained stable. With continued antibiotics her WBC returned to normal prior to discharge. She was transitioned to po antibiotics at that time. She was discharged with plan to follow up with gi for an outpatient colonoscopy. Prior to discharge patient was tolerating her diet without nausea/vomiting or abdominal pain. She denied hematochezia and melena as well as chest pain, shortness of breath, and changes in urination. Of note, patient did have incidental findings of pulmonary nodules on her CT that she will need to follow up with her PCP. Patient discharged home in stable condition. She is to complete the antibiotics as prescribed and follow up with her PCP and GI. Status at Discharge Functional status at discharge: independent ambulation Time Spent with Patient Time attestation: Total time spent providing and/or coordinating discharge services: Time spent: Greater than 30 minutes Exam Narrative: AF HR 74 RR 14 SpO2 99 BP 110/42 General: female in no acute respiratory distress who is nontoxic appearing, sitting up in bed and seen ambulating throughout the [place] HEENT: No facial asymmetry. Chest: Lungs are clear to auscultation bilaterally. No wheezes or crackles. CV: Heart was regular rate and rhythm. S1-S2. No murmurs, gallops, or rubs. Abd: Abdomen was soft. Nontender. Nondistended. Positive bowel sounds. No organomegaly or masses. DS: Data Data Completed and Pending Completed studies during hospitalization: Abdomen/pelvis CT Labs on day of discharge: Labs from last 24 hours 02/12/24 02/12/24 02/12/24 11:47 07:53 06:37 WBC 8.6 RBC 3.98 L Hgb 11.3 L Hct 35.0 L MCV 87.9 MCH 28.4 MCHC 32.3 RDW 13.4 Plt Count 134 L MPV 12.2 H Immature Gran % (Auto) 0.5 Neut % (Auto) 65.3 Lymph % (Auto) 24.3 [place] % (Auto) 5.7 Eos % (Auto) 3.6 Baso % (Auto) 0.6 Lymph # (Auto) 2.08 [place] # (Auto) 0.5 Eos # (Auto) 0.3 Baso # (Auto) 0.1 Abs Immat Gran (auto) 0.04 H Absolute Neuts (auto) 5.6 Absolute Nucleated RBC 0.000 Nucleated RBC % 0.0 Sodium 138 Potassium 4.0
[2024-02-12 14:00] VITALS: BP 110/42; PULSE 74; RESP 14; TEMP 36.8; O2SAT 99
[2024-02-14 10:18] LABS: Lactoferrin, Stool COMMENT:
[2024-02-15 21:53] LABS: Norovirus RNA PCR, Stool NOT DETECTED
[2024-02-17 21:40] LABS: Calprotectin, Stool 2220 mcg/g
== END 2024-02-12 14:15 | disposition home or self-care (01) | DRG 872 ==
LOC: ANHED 07:28 → ANH3MEDSUR 10:38
PROVIDERS: Nurse Practitioner Acute Care; Admitting Provider Family Medicine; Emergency Provider Emergency Medicine; PCP Physician Assistant; Visit Provider Student in an Organized Health Care Education/Training Program
DX: A41.9 Sepsis, unspecified organism (principal); K92.2 Gastrointestinal hemorrhage, unspecified; N17.9 Acute kidney failure, unspecified; K52.9 Noninfective gastroenteritis and colitis, unspecified; R91.8 Other nonspecific abnormal finding of lung field; E11.22 Type 2 diabetes mellitus with diabetic chronic kidney disease; I12.9 Hypertensive chronic kidney disease with stage 1 through stage 4 chronic kidney disease, or unspecified chronic kidney disease; N18.30 Chronic kidney disease, stage 3 unspecified; E78.5 Hyperlipidemia, unspecified; I25.10 Atherosclerotic heart disease of native coronary artery without angina pectoris; K21.9 Gastro-esophageal reflux disease without esophagitis; F41.9 Anxiety disorder, unspecified; E86.0 Dehydration; D50.9 Iron deficiency anemia, unspecified; M85.80 Other specified disorders of bone density and structure, unspecified site; M54.12 Radiculopathy, cervical region; M19.90 Unspecified osteoarthritis, unspecified site; Z20.822 Contact with and (suspected) exposure to COVID-19; Z95.2 Presence of prosthetic heart valve; Z95.1 Presence of aortocoronary bypass graft; Z79.82 Long term (current) use of aspirin; Z90.49 Acquired absence of other specified parts of digestive tract; Z98.42 Cataract extraction status, left eye; Z98.41 Cataract extraction status, right eye
CPT/HCPCS: 36415; 74177; 80053; 81001; 82948; 83605; 83630; 83690; 83735; 83993; 85025; 85610; 85730; 86140; 86850; 86900; 86901; 87040; 87045; 87086; 87088; 87425; 87427; 87449; 87637; 87798; 89055; 96361; 96365; 96366; 96367; 99285; A9270; G0378; J0696; J1815; J1836; J7030; J7120; Q9967

== ENCOUNTER 2024-05-21 01:33 | Day surgery (SDC) | payer MEDICARE, SELFPAY ==
[2024-05-09 12:02] VITALS: BMI 29.7
--- NOTE | 2024-05-14 09:49 | SUR.PREOP ---
Spoke with Dr. Hernández's nurse in the office and they have not gotten the clearance for the patients plavix and he is not back in office until Sunday05/16/24 but GI dept is closed. Patient is going to take last dose on 05/16 as planned and PAT nurse will touch base with patient again on Mon 05/19.
--- NOTE | 2024-05-19 13:54 | PC.NURSE ---
Spoke with patient regarding medication Plavix, confirmed her last dose was taken on 05/16/[address] Hernández, and the Endoscopist will instruct them when to restart after the procedure.
[2024-05-21 11:10] VITALS: BP 141/72; PULSE 72; RESP 18; TEMP 36.1; O2SAT 100
[2024-05-21] MEDS: LACTATED RINGERS 1,000 ML 150 ML IV CONT (11:26)
[2024-05-21 11:27] LABS: Glucose Point of Care 87 mg/dl (65-105)
[2024-05-21] MEDS: GENTAMICIN 80MG/SOD CHL 50 ML 80 MG/50 ML BAG 100 MG IVPB (11:28)
[2024-05-21] MEDS: AMPICILLIN 2 GM/NS 100 ML 2 GM/100 ML BAG IVPB (11:28)
--- NOTE | 2024-05-21 11:57 | P.HP_ITS ---
History of Present Illness History of Present Illness Consent: Risks, benefits, and alternatives have been discussed and questions answered. Patient agrees to proceed with procedure. Chief complaint: gastroenteritis and colitis Narrative: Bety Vasquez is a 68 year old female here for colonoscopy, last one 2020, hospitalization for colitis 01/2024, now asymptomatic Review of Systems Review of Systems: All systems reviewed & are unremarkable except as noted in HPI and below PMFSH Past Medical History Medical History (Updated 05/21/24 @ 11:58 by Tristin Lundy MD) Anxiety Arthritis Blood in stool Body mass index (BMI) 23 or greater (10/15/17) Body mass index (BMI) 35 or more (06/04/18) CAD in [place] artery Cervical radiculopathy Chronic anemia Chronic kidney disease, stage III (moderate) CKD stage 3 due to type 2 diabetes mellitus Closed trimalleolar fracture of right ankle Coronary artery disease Coronary artery disease Status post three-vessel CABG in 2002. She is a patient of Dr. Vadim Hernández. Dyslipidemia Essential hypertension Excessive cerumen in both ear canals GERD without esophagitis History of colitis Hypercalcemia Iron deficiency anemia Osteopenia Type 2 diabetes mellitus Recent hemoglobin A1c of 6.9%. Type 2 diabetes mellitus with hyperglycemia Vitamin D deficiency Surgical History Surgical History History of aortic valve replacement (~07/2018) Bioprosthetic tissue valve replacement done at [facility]. History of bilateral cataract extraction History of bladder suspension procedure History of bunionectomy History of section History of cholecystectomy History of coronary artery bypass graft x 3 (~04/2003) Performed at [facility]. History of hysterectomy History of mitral valve replacement (~07/2018) Bioprosthetic tissue valve replacement done at [facility]. Status post aortic valve and mitral valve replacement Status post mitral valve annuloplasty (~04/2003) Family History Family History Father Carcinoma of colon Heart disease Mother Family history of lung cancer Sibling Heart disease Other Diabetes mellitus Family history of cardiovascular disease Family history of chronic obstructive pulmonary disease Family history of glaucoma Hypertension Social History Social History Social History: Surrogate decision maker: Vadim Vasquez, son. Code status: Full code. Smoking status: Never smoker Second hand tobacco smoke exposure: No Alcohol intake: current Alcohol use details: very rare Substance use: never Do You Feel Safe in your Home?: Yes Lack of Transportation: No Lack of Food: Never True Current Housing: I Have Housing Concerned About Future Housing: No Difficulty Paying Gas/Electric Bills: No Difficulty Paying for Meds: No Currently Unemployed: No Education: High School Diploma/GED Difficulty w/ Childcare or Family Care: No Living arrangements: with family Additional living arrangements comments: The patient is and lives in her own home in [place]. Two adult sons. Additional occupation/education comments: Retired. Previously worked for an insurance agency. Gender identity (if verbalized by the patient): Female Spiritual care concerns: No Meds Home Medications and Allergies Home Medications Medication Instructions Recorded Confirmed Type blood sugar diagnostic (OneTouch #10 ea 05/08/19 02/19/24 History Ultra Blue Test Strip) pen needle, diabetic 32 gauge x #10 ea 05/08/19 05/21/24 History (BD Ultra-Fine Tala Pen Needle) aspirin 81 mg tablet,delayed 81 mg PO DAILY 07/21/19 05/21/24 History release (Adult Aspirin Regimen) ezetimibe 10 mg tablet 10 mg PO DAILY 07/21/19 05/21/24 History isosorbide mononitrate 60 mg 60 mg PO DAILY 07/21/19 05/21/24 History tablet,extended release 24 hr lisinopril 20 mg tablet 20 mg PO DAILY 07/21/19 05/21/24 History pravastatin 40 mg tablet 40 mg PO QPM 11/25/19 05/21/24 History metoprolol succinate 100 mg 100 mg PO DAILY 04/26/20 05/21/24 History tablet,extended release 24 hr pantoprazole 40 mg tablet,delayed 40 mg PO QAM 07/23/20 05/21/24 History release cholecalciferol (vitamin D3) 25 25 mcg PO DAILY 11/30/21 05/21/24 History mcg (1,000 unit) capsule semaglutide 2 mg/dose (8 mg/3 mL) 2 mg (0.75 mL) subcut WEEKLY #9 mL 01/08/24 05/21/24 Rx subcutaneous pen injector (Ozempic) insulin degludec 200 unit/mL (3 30 unit subcut HS 02/10/24 05/21/24 History mL) subcutaneous pen (Tresiba FlexTouch U-200 insulin) dapagliflozin propanediol 10 mg 10 mg PO DAILY #90 tabs 05/01/24 05/21/24 Rx tablet (Farxiga) Calcium + Vitamin D 2 tab-cap PO DAILY 05/09/24 05/21/24 History polyethylene glycol 3350 17 17 g PO 3XW PRN Constipation 05/09/24 05/21/24 History gram/dose oral powder (Miralax) Allergies Allergy/AdvReac Type Severity Reaction Status Date / Time No Known Allergies Allergy Verified 05/21/24 11:05 Vital Signs Vital Signs - 24 hr 05/21/24 11:10 Temperature 97 F L Pulse Rate 72 Respiratory Rate 18 Blood Pressure 141/72 H Pulse Oximetry 100 Oxygen Delivery Room Air Exam Const: General: comfortable and no acute distress HENMT: Face/Nose/Sinus: Normal nares present Eyes: General: appearance normal, both eyes and all related structures Neck: Neck: no JVD Resp: Auscultation: clear to auscultation bilaterally Cardio: Rate: regular rate Rhythm: regular rhythm GI: Inspection: non-distended GI Palp: Yes Soft to palpation Skin: General skin exam: normal color Neuro: General: gait normal Speech: normal speech Extrem: General: normal to inspection Psych: Mental Status: mental status grossly normal Assessment and Plan Assessment and plan (1) History of colitis: Code(s): Z87.19 - Personal history of other diseases of the digestive system Status: Acute Assessment and Plan: resolved will do colonoscopy
--- NOTE | 2024-05-21 11:59 | P.PNAN_ITS ---
Anes - Initial Pre Proc Eval Procedure: Operation Date: 05/21/24 12:30 Proposed Procedures p Colonoscopy - Tristin Lundy MD Date/Time: 05/21/24 11:59 Surgeon: Tristin Lundy MD Pre Op Diagnosis: gastroenteritis and colitis Patient Data Age: 68 Gender: F Height: 1.55 m Weight: 69.7 kg Last Vital Signs Temp 36.1 C L 05/21/24 11:10 Pulse 72 05/21/24 11:10 Resp 18 05/21/24 11:10 BP 141/72 H 05/21/24 11:10 Pulse Ox 100 05/21/24 11:10 O2 Del Method Room Air 05/21/24 11:10 Allergies Allergy/AdvReac Type Severity Reaction Status Date / Time No Known Allergies Allergy Verified 05/21/24 11:05 Home Medications Medication Instructions Recorded Confirmed Type blood sugar diagnostic (OneTouch #10 ea 05/08/19 02/19/24 History Ultra Blue Test Strip) pen needle, diabetic 32 gauge x #10 ea 05/08/19 05/21/24 History /32 (BD Ultra-Fine Tala Pen Needle) aspirin 81 mg tablet,delayed 81 mg PO DAILY 07/21/19 05/21/24 History release (Adult Aspirin Regimen) ezetimibe 10 mg tablet 10 mg PO DAILY 07/21/19 05/21/24 History isosorbide mononitrate 60 mg 60 mg PO DAILY 07/21/19 05/21/24 History tablet,extended release 24 hr lisinopril 20 mg tablet 20 mg PO DAILY 07/21/19 05/21/24 History pravastatin 40 mg tablet 40 mg PO QPM 11/25/19 05/21/24 History metoprolol succinate 100 mg 100 mg PO DAILY 04/26/20 05/21/24 History tablet,extended release 24 hr pantoprazole 40 mg tablet,delayed 40 mg PO QAM 07/23/20 05/21/24 History release cholecalciferol (vitamin D3) 25 25 mcg PO DAILY 11/30/21 05/21/24 History mcg (1,000 unit) capsule semaglutide 2 mg/dose (8 mg/3 mL) 2 mg (0.75 mL) subcut WEEKLY #9 mL 01/08/24 05/21/24 Rx subcutaneous pen injector (Ozempic) insulin degludec 200 unit/mL (3 30 unit subcut HS 02/10/24 05/21/24 History mL) subcutaneous pen (Tresiba FlexTouch U-200 insulin) dapagliflozin propanediol 10 mg 10 mg PO DAILY #90 tabs 05/01/24 05/21/24 Rx tablet (Farxiga) Calcium + Vitamin D 2 tab-cap PO DAILY 05/09/24 05/21/24 History polyethylene glycol 3350 17 17 g PO 3XW PRN Constipation 05/09/24 05/21/24 History gram/dose oral powder (Miralax) Laboratory Tests 05/21/24 11:19 POC Capillary Glucose 87 mg/dl (65-105) Patient hx anesthesia problems: none Family hx anesthesia problems: none Results Review: All pre-operative results and documents have been reviewed as part of the pre- operative evaluation. [facility] Past Medical History Medical History Anxiety Arthritis Blood in stool Body mass index (BMI) 23 or greater (10/15/17) Body mass index (BMI) 35 or more (06/04/18) CAD in [place] artery Cervical radiculopathy Chronic anemia Chronic kidney disease, stage III (moderate) CKD stage 3 due to type 2 diabetes mellitus Closed trimalleolar fracture of right ankle Coronary artery disease Coronary artery disease Status post three-vessel CABG in 2002. She is a patient of Dr. Vadim Hernández. Dyslipidemia Essential hypertension Excessive cerumen in both ear canals GERD without esophagitis History of colitis Hypercalcemia Iron deficiency anemia Osteopenia Type 2 diabetes mellitus Recent hemoglobin A1c of 6.9%. Type 2 diabetes mellitus with hyperglycemia Vitamin D deficiency Surgical History Surgical History History of aortic valve replacement (~07/2018) Bioprosthetic tissue valve replacement done at [facility]. History of bilateral cataract extraction History of bladder suspension procedure History of bunionectomy History of section History of cholecystectomy History of coronary artery bypass graft x 3 (~04/2003) Performed at [facility]. History of hysterectomy History of mitral valve replacement (~07/2018) Bioprosthetic tissue valve replacement done at [facility]. Status post aortic valve and mitral valve replacement Status post mitral valve annuloplasty (~04/2003) Family History Family History Father Carcinoma of colon Heart disease Mother Family history of lung cancer Sibling Heart disease Other Diabetes mellitus Family history of cardiovascular disease Family history of chronic obstructive pulmonary disease Family history of glaucoma Hypertension Social History Social History Social History: Surrogate decision maker: Vadim Vasquez, son. Code status: Full code. Smoking status: Never smoker Second hand tobacco smoke exposure: No Alcohol intake: current Alcohol use details: very rare Substance use: never Do You Feel Safe in your Home?: Yes Lack of Transportation: No Lack of Food: Never True Current Housing: I Have Housing Concerned About Future Housing: No Difficulty Paying Gas/Electric Bills: No Difficulty Paying for Meds: No Currently Unemployed: No Education: High School Diploma/GED Difficulty w/ Childcare or Family Care: No Living arrangements: with family Additional living arrangements comments: The patient is and lives in her own home in [place]. Two adult sons. Additional occupation/education comments: Retired. Previously worked for an insurance agency. Gender identity (if verbalized by the patient): Female Spiritual care concerns: No Anes - Eval Final PreProcedure Day of Procedure 05/21/24 11:59 Patient weight: overweight Heart: regular rate and rhythm Lungs: clear to auscultation Airway: Mallampati scale class II Neurological: alert and oriented Last oral intake: >/= 8 hours ASA classification: III Emergent: no Anesthetic plan: proceed Anesthesia type and monitoring: general GIVS Results Review: All pre-operative results and documents have been reviewed as part of the pre-operative evaluation. Informed Consent: The patient's anesthetic plan and its attendant risks and benefits were discussed with the patient/family/POA. Questions were solicited and answers provided to the satisfaction of the patient/family/POA.
[2024-05-21 12:15] VITALS: BP 90/45; PULSE 78; RESP 18; O2SAT 99
[2024-05-21 12:25] VITALS: BP 101/60; PULSE 69; RESP 24; O2SAT 100
[2024-05-21 12:35] VITALS: BP 144/58; PULSE 65; RESP 21; O2SAT 100
[2024-05-21 12:47] LABS: Glucose Point of Care 69 mg/dl (65-105)
[2024-05-21 12:55] LABS: Glucose Point of Care 72 mg/dl (65-105)
== END 2024-05-21 12:57 | disposition home or self-care (01) ==
PROVIDERS: PCP Internal Medicine; Referring Provider Nurse Practitioner Family; Visit Provider Internal Medicine Gastroenterology
PROC: 0DJD8ZZ Inspection of Lower Intestinal Tract, Via Natural or Artificial Opening Endoscopic (ICD-10-PCS; CPT 45378; principal; 2024-05-21 12:30)
DX: Z09 Encounter for follow-up examination after completed treatment for conditions other than malignant neoplasm (principal); K52.9 Noninfective gastroenteritis and colitis, unspecified; K57.30 Diverticulosis of large intestine without perforation or abscess without bleeding; E78.5 Hyperlipidemia, unspecified; K21.9 Gastro-esophageal reflux disease without esophagitis; E83.52 Hypercalcemia; D50.9 Iron deficiency anemia, unspecified; E11.649 Type 2 diabetes mellitus with hypoglycemia without coma; E11.22 Type 2 diabetes mellitus with diabetic chronic kidney disease; I12.9 Hypertensive chronic kidney disease with stage 1 through stage 4 chronic kidney disease, or unspecified chronic kidney disease; N18.30 Chronic kidney disease, stage 3 unspecified; I25.10 Atherosclerotic heart disease of native coronary artery without angina pectoris; D64.9 Anemia, unspecified; F41.9 Anxiety disorder, unspecified; M85.88 Other specified disorders of bone density and structure, other site; M19.90 Unspecified osteoarthritis, unspecified site; Z79.82 Long term (current) use of aspirin; Z79.85 Long-term (current) use of injectable non-insulin antidiabetic drugs; Z79.4 Long term (current) use of insulin; Z79.84 Long term (current) use of oral hypoglycemic drugs; Z98.890 Other specified postprocedural states; Z95.1 Presence of aortocoronary bypass graft; Z90.49 Acquired absence of other specified parts of digestive tract; Z95.5 Presence of coronary angioplasty implant and graft; Z87.19 Personal history of other diseases of the digestive system; Z80.0 Family history of malignant neoplasm of digestive organs; Z80.1 Family history of malignant neoplasm of trachea, bronchus and lung; Z82.49 Family history of ischemic heart disease and other diseases of the circulatory system
CPT/HCPCS: 45378; 82948; J0290; J1580; J2704; J7120

== ENCOUNTER 2024-05-27 09:07 | Outpatient (CLI) | payer MEDICARE, SELFPAY ==
--- NOTE | ~2024-05-27 | CT_ITS ---
CT Scan of the Chest without Contrast: Clinical Indication: Abnormal finding of lung field Technique: Contiguous sections were acquired throughout the chest without intravenous contrast. Dose reduction technique was used on this scan by utilizing automated exposure control and iterative recon struction technique. The dose-length product (DLP) was 139.44 mGy-cm. COMPARISON: 02/10/2024 Findings: There is no evidence of any significant mediastinal, hilar or axillary lymphadenopathy. There are ext ensive atherosclerotic calcifications of the aorta and coronary arteries. There is no evidence of pleural or pericardial effusion. 12 mm irregular basilar pulmonary nodule is similar to prior exam (axial image 76). There is new/incr ease irregular consolidation more anteriorly at the left lower lobe the left lung base (axial image 7 5 for example), which could reflect pneumonia versus possibly atelectasis. Images through the upper abdomen reveal dilated common bile duct, possibly related to prior cholecyst ectomy. Impression: Increased area of irregular consolidation at the left lung base, as detailed above, suggestive of pne umonia or atelectasis. Additional follow-up exam advised to reassess. Stable 12 mm left basilar pulmonary nodule, as above. This could also be reassessed at additional fur ther follow-up exam. Reviewed, dictated and finalized at location . PER Impression: Increased area of irregular consolidation at the left lung base, as detailed ab ove, suggestive of pneumonia or atelectasis. Additional follow-up exam advised to reassess. Stable 12 mm left basilar pulmonary nodule, as above. This could also be reasse ssed at additional further follow-up exam.
== END 2024-05-27 09:08 | disposition home or self-care (01) ==
PROVIDERS: PCP Nurse Practitioner; Visit Provider Nurse Practitioner
DX: R91.8 Other nonspecific abnormal finding of lung field (principal); J98.4 Other disorders of lung; R91.1 Solitary pulmonary nodule
CPT/HCPCS: 71250

== ENCOUNTER 2024-07-17 15:50 | Outpatient (CLI) | payer MEDICARE, SELFPAY ==
--- NOTE | ~2024-07-17 | US_ITS ---
EXAM: RENAL ULTRASOUND HISTORY: I12.9 - Hypertensive chronic kidney disease with stage 1 ... COMPARISON: None. Reference is made to a CT examination of the abdomen and pelvis dated 02/10/2024 FINDINGS: RIGHT KIDNEY: 10.7 x 4.4 x 4.6 cm. The parenchyma of the right kidney is thin and increased in echogenicity. No hydronephrosis or bulky renal calculi. LEFT KIDNEY: 8.0 x 4.4 x 3.7 cm No hydronephrosis or renal calculi. The parenchyma of the left kidney is thin and increased in echogenicity. BLADDER: Distended. No wall thickening or irregularity is noted. IMPRESSION: No hydronephrosis or renal calculi. Findings suggesting medical renal disease. Reviewed, dictated and finalized at location A. ECTIONAL SUPPLY SUPERVISOR
--- OUTSIDE RECORDS SUMMARY | 2024-07-17 15:53 | XMS_ITS | Encounter Summary ---
Author Organization [facility] Address [address] [place] [address] Phone Care Team Providers Care Transplant Worker Name Role Phone Evette Ponce MD Primary Care Provider Joao Mcdonough Primary Care Provider Andi Craig DO Primary Care Provider [phone] Encounter Details Date Type Department Care Team (Latest Contact Info) Description 07/30/2017 Orders Only [facility] CONVERSION Scanning, Provider Social History Tobacco Use Types Packs/Day Years Used Date Smoking Tobacco: Never Smokeless Tobacco: Never Alcohol Use Standard Drinks/Week Comments No 0 (1 standard drink = 0.6 oz pur e alcohol) Comments Unknown Sex and Gender Information Value Date Recorded Sex Assigned at Not on file Legal Sex Female 10:50 AM PEST CONTROL APPLICATOR Gender Identity Not on file Sexual Orientation Not on file documented as of this encounter Plan of Treatment Not on file documented as of this encounter Procedures Procedure Name Priority Date/Time Associated Diagnosis Comments PULMONARY FUNCTION TEST (PFT) 07/30/2017 12:44 PM PEST CONTROL APPLICATOR documented in this encounter Results * PULMONARY FUNCTION TEST (PFT) (07/30/2017 12:44 PM PEST CONTROL APPLICATOR) Anatomical Region Laterality Modality PFT us Provider Scanning PFT ORDERABLES Final Result documented in this encounter Visit Diagnoses Not on filedocumented in this encounter Additional Health Concerns Infection Onset Date Last Indicated Resolved Time COVID: Suspected 09/27/2021 09/27/2021 09/27/2021 9:51 AM CDT COVID: Suspected 10/26/2022 10/26/2022 10/26/2022 3:45 PM CDT documented as of this encounter Care Teams Transplant Worker Relationship Specialty Start Date End Date Evette Ponce MD PCP - General Family Practice 05/31/17 07/07/20 Joao Mcdonough PA [address] [place] [address] PCP - General Physician Internet Media Planner 07/08/20 03/06/24 Andi Craig DO [address] [place] [address] PCP - General Internal Medicine 03/07/24 documented as of this encounter
--- OUTSIDE RECORDS SUMMARY | 2024-07-17 15:53 | XMS_ITS | Clinical Summary ---
Author Organization [facility] [address] Address [address] [place] [address] Care Team Providers Care Soaker Soda Worker Name Role Phone Andi Craig DO Primary Care Provider [phone] Allergies No known active allergies Medications cholecalciferol (cholecalcifero l) 1,000 unit tablet take 1 by Oral route every day 0 04/08/20 12 Active Additional Information Patient taking differently: 2,000 Units oral Daily, Indications: Vitamin D Deficiency, Reported on 10/26/2022 aspirin (ASPIRIN LOW DOSE) 81 mg tablet take 1 Tablet (81MG) by oral route every day 0 04/08/20 12 Active insulin degludec (TRESIBA U-100 INSULIN SUBQ) Inject under the skin Active semaglutide 0.25 mg or 0.5 mg(2 mg/1.5 mL) pen injector Inject 0.5 mg under the skin once a week Active dapagliflozin (FARXIGA) 10 mg tablet 1 tablet (10 mg total) Active omega-3 fatty acids 1,000 mg capsule Take by mouth Active nitroglycerin (NITROSTAT) 0.[address] 1 tablet (0.4 mg total) under the tongue every 5 (five) minutes as needed for chest pain 25 tablet 11 03/26/[address] (PROTONIX) 40 mg EC tablet TAKE 1 TABLET BY MOUTH EVERY DAY 90 tablet 3 09/17/19 24 Active clopidogreL (PLAVIX) 75 mg tablet TAKE 1 TABLET BY MOUTH EVERY DAY 90 tablet 3 03/07/20 24 Active metoprolol XL (TOPROL-XL) 100 mg 24 hr tablet TAKE 1 TABLET BY MOUTH EVERY DAY 90 tablet 2 04/24/20 24 Active lisinopriL (PRINIVIL,ZESTR [place]) 20 mg tabletIndicatio ns:Hx of CABG TAKE 1 TABLET BY MOUTH EVERY DAY 90 tablet 1 04/24/20 24 Active pravastatin (PRAVACHOL) 40 mg tablet TAKE 1 TABLET BY MOUTH EVERY DAY 90 tablet 1 04/24/20 24 Active isosorbide mononitrate ER (IMDUR) 60 mg 24 hr tablet TAKE 1 TABLET BY MOUTH EVERY DAY 90 tablet 1 04/24/20 24 Active ezetimibe (ZETIA) 10 mg tablet TAKE 1 TABLET BY MOUTH EVERY DAY 90 tablet 1 07/14/19 25 Active ezetimibe (ZETIA) 10 mg tablet TAKE 1 TABLET BY MOUTH EVERY DAY 90 tablet 1 01/15/20 24 025 Discontinued Active Problems Problem Noted Date Diagnosed Date History of coronary artery stent placement 06/06 Hx of mitral valve replacement 10/16/2017 H/O prosthetic aortic valve replacement 10/17/19 18 Mitral valve regurgitation 06/14/2017 Aortic regurgitation 06/14/2017 Hx of CABG 05/31/2017 Abnormal result of cardiovascular function study 04/30/2014 Overview (09/21/2016): Abnormal results of cardiovascular function studies Coronary arteriosclerosis in [place] artery 04/30 Overview (09/21/2016): Coronary arteriosclerosis in [place] artery Encounters Date Type Department Care Team Description 05/14/2024 Telephone [facility] Cardiology [address] [place] [address] Vadim Hernández MD cardiac clearance from Last 3 Months Immunizations Name Administration Dates Next Due Influenza, Quadrivalent, Spl it, Preservative Free, Intramuscular 07/26/2018 Surgical History Surgery Date Site/Laterality Comments CORONARY ARTERY BYPASS GRAFT AORTIC VALVE REPLACEMENT MITRAL VALVE REPLACEMENT CARDIAC CATHETERIZATION CORONARY STENT PLACEMENT x3 CHOLECYSTECTOMY HYSTERECTOMY Medical History Medical History Date Comments Hypertension Hypertension Hx Other Medical Diabetes Type I I Arrhythmia Heart murmur Chronic kidney disease Hyperlipidemia Diabetes mellitus (HCC) Coronary artery disease Family History Medical History Relation Name Comments Coronary artery disease Father Fami ly history of coronary artery disease - (Added by TW Conv) Heart attack Father Myocardial Infa rction; /Family history of heart attack - (Added by TW Conv) Hypertension Father Family history of hypertension - (Added by TW Conv) Coronary artery disease Sister 2 Casimiro nary Artery Disease; Coronary artery disease Sister 3 Fami ly history of coronary artery disease - (Added by TW Conv) Hypertension Sister 4 Family history of hypertension - (Added by TW Conv) Relation Name Status Comments Father Alive Sister 1 Alive Sister 2 Sister 3 Sister 4 Social History Tobacco Use Types Packs/Day Years Used Date Smoking Tobacco: Never Smokeless Tobacco: Never Tobacco Cessation:Counseling Given: Not Answered Alcohol Use Standard Drinks/Week Comments No 0 (1 standard drink = 0.6 oz pur e alcohol) AUDIT-C Answer Date Recorded Q1: How often do you have a drink containing alcohol? Never 02/01/2024 Q2: How many drinks containi ng alcohol do you have on a typical day when you are drinking? Patient does not drink Q3: How often do you have si x or more drinks on one occasion? 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 Gender Identity Not on file Sexual Orientation Not on file Obstetrics History Last Filed Vital Signs Vital Sign Reading Time Taken Comments Blood Pressure 148/83 03/07/2024 8:03 AM CDT Pulse 70 03/07/2024 8:03 AM CDT Temperature 36.8 ??C (98.3 ??F) 01/30/2024 1:54 PM CD T Respiratory Rate 18 02/01/2024 1:18 PM CDT Oxygen Saturation 97% 01/30/2024 1:54 PM CDT Inhaled Oxygen Concentration - - Weight 70.8 kg (156 lb) 03/07/2024 8:03 AM CDT Height 157.5 cm (5' 2 ) 03/07/2024 8:03 AM CDT Body Mass Index 28.53 03/07/2024 8:03 AM CDT Plan of Treatment Health Maintenance Due Date Last Done Comments Breast Cancer Screening-Mammogram 1953 Colon Cancer Screening-Colonoscopy 1955 Depression Screening 1953 Hepatitis C Screening 1955 Osteoporosis Screening-Bone Density Scan 1953 DTaP/Tdap/Td Vaccine (1 - Tdap) 1964 Hepatitis B Screening 1971 Zoster Vaccine (1 of 2) 2003 Well Visit 65+ 2018 Pneumococcal vaccine 65+ (2 of 2 - PPSV23 or PCV20) 03/15/2020 03/15/2019 Fall Risk Assessment 12/31/2020 01/01/2020 Influenza Vaccine (#1) 2024 9, 07/26/2018, 04/25/2017, Additional history exists Insurance [facility] PPO [facility] HMO/PPO Address: [address] [place] [address] [facility] CHOICE PLUS MEDICARE [facility] CHOICE PLUS MEDICARE [facility] Advance Directives For more information, please contact: [phone] Documents on File Type Date Recorded Patient Security System Analyst Expl anation Power of Appeals Nurse ADVANCE DIRECTIVE 09/08/2017 11:50 AM * Full Code (Latest Code Status on File) Date Activated Date Inactivated Comments 07/26/2018 10:49 AM 07/26/2018 3:13 PM Care Teams Soaker Soda Worker Relationship Specialty Start Date End Date Andi Craig DO [address] [facility] [address] [place] [address] PCP - General Internal Medicine 03/07/24
--- OUTSIDE RECORDS SUMMARY | 2024-07-17 15:53 | XMS_ITS | Referral Summary ---
Author Organization [facility] [address] Address [address] [place] [address] Care Team Providers Care National Dedicated Truck Driver Name Role Phone Andi Craig DO Primary Care Provider [phone] Encounters Date Type Department Care Team Description 05/14/2024 Telephone [facility] Cardiology [address] [place] [address] Vadim Hernández MD cardiac clearance from Last 3 Months Allergies No known active allergies Medications cholecalciferol [...] of cardiovascular function studies Coronary arteriosclerosis in [place] artery 04/30 Overview (09/21/2016): Coronary arteriosclerosis in [place] artery Immunizations Name Administration Dates Next Due Influenza, Quadrivalent, Spl it, Preservative Free, Intramuscular 07/26/2018 Social History Tobacco Use Types Packs/Day Years [...] on file Legal Sex 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 REPAIR WORKER Gender Identity Not on file Sexual Orientation Not on file Last Filed Vital Signs Vital Sign Reading [...] 03/07/2024 8:03 AM CDT Plan of Treatment Not on file Insurance [facility] PPO [facility] CHOICE PLUS MEDICARE [facility] CHOICE PLUS MEDICARE [facility] Advance Directives For more information, please contact: [phone] Documents on File Type Date Recorded Patient Cornetist Expl anation Power of Venetian Blind Installer ADVANCE DIRECTIVE 09/08/2017 11:50 AM * Full Code (Latest Code Status on File) Date Activated Date Inactivated Comments 07/26/2018 10:49 AM 07/26/2018 3:13 PM Care Teams National Dedicated Truck Driver Relationship Specialty Start Date End Date Andi Craig DO [address] [email or web address] [address] [place] [address] PCP - General Internal Medicine 03/07/24
== END 2024-07-17 15:51 | disposition home or self-care (01) ==
LOC: ANHIMG 15:51
PROVIDERS: Visit Provider Internal Medicine Nephrology
DX: I12.9 Hypertensive chronic kidney disease with stage 1 through stage 4 chronic kidney disease, or unspecified chronic kidney disease (principal); N18.32 Chronic kidney disease, stage 3b; E11.22 Type 2 diabetes mellitus with diabetic chronic kidney disease
CPT/HCPCS: 76775

== ENCOUNTER 2024-11-06 09:56 | Outpatient (CLI) | payer MEDICARE, SELFPAY ==
--- NOTE | ~2024-11-06 | MM_ITS ---
EXAMINATION: MM screening alisha BI w sandie HISTORY: Screening TECHNIQUE: Craniocaudal and mediolateral oblique 3-D tomosynthesis images were obtained and synthetic 2-D images were generated. CAD analysis was submitted and interpreted. COMPARISON: Comparison to multiple prior studies sequentially, with oldest reviewed study dated 03/19. BREAST PARENCHYMAL COMPOSITION: Not dense: There are scattered areas of fibroglandular density. FINDINGS: There is no evidence of suspicious mass, calcification, or architectural distortion to sugg est malignancy in either breast. There has been no suspicious interval change. IMPRESSION: 1. No mammographic evidence of malignancy. 2. Recommend routine screening mammography in one year. BI-RADS Category 1: Negative Reviewed, dictated and finalized at location B.
== END 2024-11-06 09:57 | disposition home or self-care (01) ==
LOC: MICIMG 09:57
PROVIDERS: PCP Obstetrics & Gynecology Gynecology; Visit Provider Obstetrics & Gynecology Gynecology
DX: Z12.31 Encounter for screening mammogram for malignant neoplasm of breast (principal)
CPT/HCPCS: 77063; 77067

== ENCOUNTER 2025-02-17 13:50 | Outpatient (CLI) | payer MEDICARE, SELFPAY ==
--- NOTE | ~2025-02-17 | XR_ITS ---
XR abdomen/kub 1V 02/17/2025 14:06 Indication: Abdominal pain Procedure: KUB Comparison: Comparison to multiple prior studies sequentially, with oldest reviewed study dated 02/10/2024. Findings: Bowel gas pattern nonobstructive. There is atherosclerosis involving the splenic artery. There are cholecystectomy clips. No renal stones identified. There is a left pelvic phlebolith. There are 2 calcifications in the right mid abdomen corresponding to mesenteric calcifications seen on CT dated 02/10/2024. Lung bases unremarkable. There is a prosthetic heart valve partially visualized. No acute osseous abnormality. Impression: 1: No acute abdominal abnormality. Reviewed, dictated and finalized at location O. Impression: 1: No acute abdominal abnormality.
--- OUTSIDE RECORDS SUMMARY | 2025-02-17 14:05 | XMS_ITS | Encounter Summary ---
Author Organization [facility] Healthcare Address [address] [place] [address] Care Team Providers Care Tissue Packer Name Role Phone Andi Craig DO Primary Care Provider [phone] Encounter Details Date Type Department Care Team (Late st Contact Info) Description 02/09/2025 Results Follow-Up [facility] Convenient Care at [address] [address] Farzaneh Ramírez NP [address] [place] [address] [address] [place] [address] Urine culture Urine, clean voided Social History Tobacco Use Types Packs/Day Years Used Date Smoking Tobacco: Never Smokeless Tobacco: Never Alcohol Use Standard Drinks/Week Comments Never 0 (1 standard drink = 0.6 oz pur e alcohol) AUDIT-C Answer Date Recorded Q1: How often do you have a drink containing alcohol? Never 02/07/2025 Q2: How many drinks containi ng alcohol do you have on a typical day when you are drinking? Patient does not drink Q3: How often do you have si x or more drinks on one occasion? 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
--- OUTSIDE RECORDS SUMMARY | 2025-02-17 14:05 | XMS_ITS | Clinical Summary ---
Author Organization [facility] [address] Address [address] [place] [address] Care Team Providers Care Hand Cementer Name Role Phone Andi Craig DO Primary Care Provider [phone] Allergies No known active allergies Medications cholecalciferol (cholecalciferol ) 1,000 unit tablet take 1 by Oral route every day 0 2 Active aspirin (ASPIRIN LOW DOSE) 81 mg tablet take 1 Tablet (81MG) by oral route every day 0 2 Active insulin degludec (TRESIBA U-100 INSULIN SUBQ) Inject under the skin Active semaglutide 0.25 mg or 0.5 mg(2 mg/1.5 mL) pen injector Inject 0.5 mg under the skin once a week Active dapagliflozin (FARXIGA) 10 mg tablet 1 tablet (10 mg total) Active omega-3 fatty acids 1,000 mg capsule Take by mouth Active clopidogreL (PLAVIX) 75 mg tablet TAKE 1 TABLET BY MOUTH EVERY DAY 90 tablet [address] (PROTONIX) 40 mg EC tablet TAKE 1 TABLET BY MOUTH EVERY DAY 90 tablet 3 5 Active isosorbide mononitrate ER (IMDUR) 60 mg 24 hr tablet TAKE 1 TABLET BY MOUTH EVERY DAY 90 tablet 1 5 Active pravastatin (PRAVACHOL) 40 mg tablet TAKE 1 TABLET BY MOUTH EVERY DAY 90 tablet 1 5 Active lisinopriL (PRINIVIL,ZESTRI L) 20 mg tabletIndication s:Hx of CABG TAKE 1 TABLET BY MOUTH EVERY DAY 90 tablet 1 5 Active ezetimibe (ZETIA) 10 mg tablet TAKE 1 TABLET BY MOUTH EVERY DAY 90 tablet 1 5 Active metoprolol XL (TOPROL-XL) 100 mg 24 hr tablet TAKE 1 TABLET BY MOUTH EVERY DAY 90 tablet 2 5 Active nitroglycerin (NITROSTAT) 0.[address] 1 TABLET UNDER THE TONGUE EVERY 5 MINUTES NEEDED FOR CHEST PAIN. 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 18 Mitral valve regurgitation 06/14/2017 Aortic regurgitation 06/14/2017 Hx of CABG 05/31/2017 Abnormal result of cardiovascular function study 04/30/2014 Overview (09/21/2016): Abnormal results of cardiovascular function studies Coronary arteriosclerosis in [place] artery 04/30 Overview (09/21/2016): Coronary arteriosclerosis in [place] artery Encounters Date Type Department Care Team Description 02/09/2025 Results Follow-Up [facility] [address] [phone] Farzaneh Ramírez NP Urine culture Urine, clean voided 02/07/2025 2:04 PM CDT - 02/07/2025 11:59 PM CDT Hospital Encounter [address] [address] Acute left-sided low back pain without sciatica; Pyelonephritis Discharge Disposition: Discharge to home or self care 02/07/2025 9:00 AM CDT Office Visit [facility] [address] [phone] Dwayne Garcia, ONELIA Pyelonephritis (Primary Dx); Acute left-sided low back pain without sciatica from Last 3 Months Immunizations Immunization Administration Dates Next Due Influenza, Quadrivalent, Spl [...] Not Answered Alcohol Use Standard Drinks/Week Comments Never 0 [...] on file 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 Gender Identity Not on file Sexual Orientation Not on file Obstetrics History Last Filed Vital Signs Vital Sign Reading Time Taken Comments Blood Pressure 128/76 02/07/2025 8:33 AM CDT Pulse 76 02/07/2025 8:33 AM CDT Temperature 36.6 C (97.8 F) 02/07/2025 8:33 AM CDT Respiratory Rate 18 02/07/2025 8:33 AM CDT Oxygen Saturation 98% 02/07/2025 8:33 AM CDT Inhaled Oxygen Concentration - - Weight 72 kg (158 lb 11.2 oz) 02/07/2025 8:33 AM CDT Height 154.9 cm (5' 1) 02/07/2025 8:33 AM CDT Body Mass Index 29.99 02/07/2025 8:33 AM CDT Plan of Treatment Health Maintenance Due Date Last Done Comments Breast Cancer Screening-Mammogram 1953 Colon Cancer Screening-Colonoscopy 1955 Depression Screening 1955 Hepatitis C Screening 1955 Osteoporosis Screening-Bone Density Scan 1953 Hepatitis B Screening 1971 Zoster Vaccine (2 of 3) 08/17/2014 06/22/2014 Well Visit 65+ 2018 Fall Risk Assessment 12/31/2020 01/01/2020 DTaP/Tdap/Td Vaccine (2 - Td or Tdap) 06/22/2024 06/22/2014 Covid-19 Vaccine (2 - 2024-2 6 season) 2025 03/20/2023 Influenza Vaccine (#1) 2025 , 03/30/2021, 03/18/2021, Additional history exists Pneumococcal vaccine 65+ Completed 03/18/2021, 02/17 Procedures Procedure Name Priority Date/Time Associated Diagnosis Comments URINE CULTURE Routine 02/07/2025 2:04 PM CDT Acute left-sided low back pain without sciatica Pyelonephritis POCT URINALYSIS DIPSTICK Routine 02/07/2025 8:41 AM CDT Acute left-sided low back pain without sciatica from Last 3 Months Results * (ABNORMAL) Urine culture Urine, clean voided (02/07/2025 2:04 PM CDT) Report Final Report: Greater than or equal to 100,000 colonies/mL of Escherichia coli Plus growth of clinically insignificant bacterial asher. (.) Comment:Testing performed by : [facility], [address] [facility], [place]., [address] Organism ESCHERICHIA COLI [place]AS Organism PLUS GROWTH OF CLINICALLY INSIGNIFICANT ASHER. [place]AS Urine, clean voided 02/07/2025 2:04 PM CDT 02/07/2025 4:13 PM CDT Narrative DOUGLAS - 02/09/2025 9:41 AM CDT Testing performed by [facility] Microbiology Laboratory ([phone]) Organism Antibiotic Method Susceptibility Escherichia coli Ampicillin INTERPRETATION Susceptible Escherichia coli Cefazolin INTERPRETATION Susceptible Escherichia coli Nitrofurantoin INTERPRETATION Susceptible Escherichia coli Gentamicin INTERPRETATION Susceptible Escherichia coli Trimethoprim with Sulfamethoxazole IN TERPRETATION Susceptible Escherichia coli Meropenem INTERPRETATION Susceptible Escherichia coli Cefepime INTERPRETATION Susceptible Escherichia coli Ciprofloxacin INTERPRETATION Susceptible Escherichia coli Ceftazidime INTERPRETATION Susceptible Escherichia coli Ceftriaxone INTERPRETATION Susceptible Escherichia coli Piperacillin/Tazobactam INTERPRETATIO N Susceptible Escherichia coli Cephalexin INTERPRETATION Susceptible Escherichia coli Cefuroxime-axetil INTERPRETATION Susceptible Escherichia coli Cefdinir INTERPRETATION Susceptible Dwayne Garcia NP LAB MICROBIOLOGY - [facility] Final Result D[place]AS [address] Department [place] [address] * (ABNORMAL) POCT urinalysis dipstick (02/07/2025 8:41 AM CDT) Color, Urine, POC Light Yellow Clarity, ur, POC Cloudy(A) Clear Glucose, ur, POC 1000.(A) Negative Bilirubin, ur, POC Negative Negative Ketones, ur, POC Negative Negative Specific [place], POC 1.020 1.003 - 1.030 Blood, ur, POC Small(A) Negative pH, ur, POC 5.5 5.0 - 8.0 Protein, ur, POC Trace(A) Negative Urobilinogen, urine, POC 0.2 0.2 - 1.0 mg/dL Nitrite, ur, POC Positive(A) Negative Leukocytes, ur, POC Small(A) Negative Lot Number [id number] Urine 02/07/2025 8:41 AM CDT Dwayne Garcia NP POINT OF CARE TEST ORDERABLES F inal Result from Last 3 Months Insurance MEDICARE [facility] CHOICE PLUS MEDICARE [facility] MEDICARE SUPPLEMENT Advance Directives For more information, please contact: [phone] Documents on File Type Date Recorded Patient Engineer Booster And Exhauster Expl anation Power of Link Machine Operator ADVANCE DIRECTIVE 09/08/2017 11:50 AM * Full Code (Latest Code Status on File) Date Activated Date Inactivated Comments 07/26/2018 10:49 AM 07/26/2018 3:13 PM Care Teams Hand Cementer Relationship Specialty Start Date End Date Andi Craig DO [address] [address] PCP - General Internal Medicine 03/07/24
--- OUTSIDE RECORDS SUMMARY | 2025-02-17 14:05 | XMS_ITS | Encounter Summary ---
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 Gender Identity Not on file Sexual Orientation Not on file documented as of this encounter Plan of Treatment Not on file documented as of this encounter Procedures Procedure Name Priority Date/Time Associated Diagnosis Comments SCAN - RADIOLOGY/IMAGING 05/27/2024 documented in this encounter Results * SCAN - RADIOLOGY/IMAGING (05/27/2024) Anatomical Region Laterality Modality Other us Provider Scanning Final Result documented in this encounter Visit Diagnoses Not on filedocumented in this encounter Care Teams Hazardous Waste Management Specialist Relationship Specialty Start Date End Date Andi Craig DO [address] [facility] [address] [place] [address] PCP - General Internal Medicine 03/07/24 documented as of this encounter
--- OUTSIDE RECORDS SUMMARY | 2025-02-17 14:05 | XMS_ITS | Encounter Summary ---
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 Gender Identity Not on file Sexual Orientation Not on file documented as of this encounter Plan of Treatment Not on file documented as of this encounter Procedures Procedure Name Priority Date/Time Associated Diagnosis Comments PULMONARY FUNCTION TEST (PFT) 07/30/2017 12:44 PM BLOOMING MILL SUPERVISOR documented in this encounter Results * PULMONARY FUNCTION TEST (PFT) (07/30/2017 12:44 PM BLOOMING MILL SUPERVISOR) Anatomical Region Laterality Modality PFT us Provider Scanning PFT ORDERABLES Final Result documented in this encounter Visit Diagnoses Not on filedocumented in this encounter Additional Health Concerns Infection Onset Date Last Indicated Resolved Time COVID: Suspected 09/27/2021 09/27/2021 09/27/2021 9:51 AM CDT COVID: Suspected 10/26/2022 10/26/2022 10/26/2022 3:45 PM CDT documented as of this encounter Care Teams Document Control Coordinator Relationship Specialty Start Date End Date Evette Ponce MD PCP - General Family Practice 05/31/17 07/07/20 Joao Mcdonough PA [address] [place] [address] PCP - General Physician Controller Repairer And Tester 07/08/20 03/06/24 Andi Craig DO [address] [place] [address] PCP - General Internal Medicine 03/07/24 documented as of this encounter
== END 2025-02-17 13:51 | disposition home or self-care (01) ==
PROVIDERS: PCP Nurse Practitioner; Visit Provider Nurse Practitioner
DX: R10.9 Unspecified abdominal pain (principal)
CPT/HCPCS: 74018